=== PATIENT | female | born 1945 | race Caucasian/White ===

== ENCOUNTER 2017-07-22 16:33 | Inpatient (IN) | payer MEDICARE ==
[2017-07-22] MEDS ORDERED: IV VANCOMYCIN PER PHARMACY 1 EACH MISC MISCELLANE PRN (16:36)
[2017-07-22] MEDS: ACETAMINOPHEN TAB 500 MG TAB PO STA ×2 (16:46→17:09)
[2017-07-22 16:48] LABS: Basophils # (A) 0.1 k/uL (0-0.2); Basophils % (A) 1 %; CH 29.6; CHCM 32.1; Eosinophils # (A) 0.3 k/uL (0-0.7); Eosinophils % (A) 3 %; HCT 30.8 % (34.0-46.0); HDW 2.42; Luc # (Auto) 0.18; Luc % (Auto) 2; Lymphocytes # (A) 0.8 k/uL (1.0-4.8); Lymphocytes % (A) 7 %; MCH 30.1 pg (25.0-35.0); MCHC 32.4 g/dL (31.0-37.0); MCV 92.7 fL (80.0-100.0); Mean Platelet Volume 7.4; Monocytes # (A) 0.7 k/uL (0-1.0); Monocytes % (A) 6 %; Neutrophils # (A) 9.3 k/uL (1.3-7.7); Neutrophils % (A) 82 %; RBC 3.32 m/uL (3.80-5.40); RDW 13.2 % (11.5-15.5); WBC 11.3 k/uL (3.8-10.6); WBC (Perox) 11.33
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
[2017-07-22 17:00] LABS: Calcium 8.8 mg/dL (8.4-10.2); Potassium 6.1 mmol/L (3.5-5.1); Total Bilirubin 0.3 mg/dL (0.2-1.3); Total Protein 6.6 g/dL (6.3-8.2)
[2017-07-22 17:06] LABS: Prothrombin Time 9.9 sec (9.0-12.0)
[2017-07-22 17:08] LABS: Partial Thromboplastin Time 20.6 sec (22.0-30.0)
[2017-07-22 17:12] LABS: VBG PH 7.32 (7.31-7.41)
[2017-07-22] MEDS ORDERED: ACETAMINOPHEN IV (For NPO) 1,000 MG in EMPTY BAG 1 BAG IVPB ONE (17:15)
[2017-07-22 17:30] LABS: Appearance,Urine Clear (Clear); Bilirubin,Urine Negative (Negative); Glucose,Urine (UA) 3+ (Negative); Ketones,Urine Negative (Negative); Leukocyte Esterase,Urine Negative (Negative); Mucus,Urine Rare /hpf; Nitrite,Urine Negative (Negative); PH, Urine 6.5 (5.0-8.0); Particle Count 1277; Protein,Urine 3+ (Negative); Specific Gravity,Urine 1.008 (1.001-1.035); Squamous Epithelial Cell,Urine <1 /hpf (0-4); UA Billing (MACRO vs. MICRO) MICRO; Urobilinogen,Urine <2.0 mg/dL (<2.0); WBC,Urine 14 /hpf (0-5)
[2017-07-22] MEDS ORDERED: VANCOMYCIN 1,750 MG in SODIUM CHLORIDE 0.9% 250 ML IVPB ONE (17:30)
[2017-07-22] MEDS ORDERED: DOCUSATE 100 MG CAP PO PRN (17:44)
--- NOTE | 2017-07-22 18:10 | CT ---
EXAMINATION TYPE: CT brain wo con DATE OF EXAM: 07/22/2017 COMPARISON: NONE HISTORY: Altered mental status. CT DLP: 2009.[address] of the brain was performed. The ventricles, basal cisterns and sulci overlying the cerebral convexities demonstrate mild enlargem ent. There is no evidence for intracranial hemorrhage or sulcal effacement. There is decreased attenuation about the periventricular white matter and deep white matter of both c erebral hemispheres, compatible with chronic small vessel ischemia. Differential diagnosis does inclu de demyelination. No mass effects are seen.No midline shift. Osseous calvarium is intact. If symptoms persist consider MRI. IMPRESSION: 1. Age related atrophic and chronic small vessel ischemic change without acute intracranial process s een at this time.
--- NOTE | 2017-07-22 18:11 | XR ---
EXAMINATION TYPE: XR chest 2V DATE OF EXAM: 07/22/2017 COMPARISON: NONE HISTORY: Shortness of breath TECHNIQUE: Frontal and lateral views of the chest are obtained. FINDINGS: Scattered senescent parenchymal changes noted. Hyperinflation compatible with COPD. Heart size enlarged. Pulmonary venous congestion noted. Developing infiltrate right medial lung base not excluded. Correlate clinically. Mediastinal structures are stable and grossly unremarkable. No evidence for hilar prominence. Degenerative changes dorsal spine. IMPRESSION: 1. Heart size enlarged. Pulmonary venous congestion noted. Developing infiltrate right medial lung ba se not excluded. Correlate clinically.
[2017-07-22] MEDS: SODIUM CHLORIDE 0.9% 250 ML IV SCH ×2 (18:30→22:21)
[2017-07-22] MEDS: SODIUM CHLORIDE 0.9% 1,000 ML IV SCH (18:30)
[2017-07-22] MEDS ORDERED: FUROSEMIDE 10 MG/ML 4 ML VIAL IV STA (18:32)
[2017-07-22] MEDS ORDERED: NALOXONE 0.4 MG/ML 1 ML VIAL IV PRN (18:35)
[2017-07-22] MEDS ORDERED: CALCIUM GLUCONATE 1,000 MG in SODIUM CHLORIDE 0.9% 100 ML IVPB ONE (18:45)
[2017-07-22 20:59] LABS: Hemoglobin A1C 6.8 % (4.2-6.1)
[2017-07-22 21:03] LABS: Glucose,Whole Blood 210 mg/dL (75-99)
[2017-07-22] MEDS: GABAPENTIN 100 MG CAP PO SCH (22:21)
[2017-07-22] MEDS: amLODIPine 5 MG TAB PO SCH (22:22)
[2017-07-22] MEDS: CARVEDILOL 12.5 MG TAB PO SCH (22:22)
[2017-07-22] MEDS: ATORVASTATIN 40 MG TAB PO SCH (22:23)
[2017-07-22] MEDS: VALSARTAN 80 MG TAB PO SCH (22:23)
[2017-07-23] MEDS: CALCIUM ACETATE 667 MG CAP PO SCH ×4 (00:49→17:22)
[2017-07-23] MEDS: HEPARIN SODIUM,PORCINE 5,000 UNIT/ML 1 ML VIAL SQ SCH ×3 (00:49→20:51)
[2017-07-23] MEDS: INSULIN LISPRO (humaLOG) 300 UNIT/3 ML VIAL SQ SCH ×5 (00:49→20:57)
[2017-07-23] MEDS: SODIUM CHLORIDE 0.9% 250 ML IV SCH ×2 (00:50→00:58)
[2017-07-23 00:56] LABS: Glucose,Whole Blood 185 mg/dL (75-99)
[2017-07-23 05:57] LABS: Glucose,Whole Blood 232 mg/dL (75-99)
[2017-07-23 06:09] LABS: Basophils % (A) 0 %; CH 30.8; Eosinophils # (A) 0.1 k/uL (0-0.7); Eosinophils % (A) 1 %; HCT 25.1 % (34.0-46.0); HDW 2.45; Luc # (Auto) 0.13; Luc % (Auto) 1; Lymphocytes % (A) 10 %; MCH 29.7 pg (25.0-35.0); MCHC 31.7 g/dL (31.0-37.0); MCV 93.8 fL (80.0-100.0); Monocytes # (A) 0.5 k/uL (0-1.0); Monocytes % (A) 6 %; Neutrophils # (A) 7.4 k/uL (1.3-7.7); Neutrophils % (A) 81 %; RBC 2.67 m/uL (3.80-5.40); RDW 13.6 % (11.5-15.5); WBC 9.1 k/uL (3.8-10.6); WBC (Perox) 9.74
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
[2017-07-23 06:24] LABS: Anion Gap 9 mmol/L; Blood Urea Nitrogen 46 mg/dL (7-17); Calcium 8.2 mg/dL (8.4-10.2); Carbon Dioxide 23 mmol/L (22-30); Chloride 105 mmol/L (98-107); Glucose 238 mg/dL (74-99); Potassium 4.7 mmol/L (3.5-5.1); Sodium 137 mmol/L (137-145)
[2017-07-23 06:36] LABS: HGB 7.9 gm/dL (11.4-16.0)
[2017-07-23 06:54] LABS: Hepatitis B Surface Ag Index 0.05
[2017-07-23] MEDS: SODIUM CHLORIDE 0.9% 1,000 ML IV SCH (07:00)
[2017-07-23] MEDS: CARVEDILOL 12.5 MG TAB PO SCH ×2 (07:00→17:22)
[2017-07-23 07:26] LABS: Non-African American GFR(MDRD) 12 (>60 ml/min/1.73 sqM)
[2017-07-23] MEDS: ASPIRIN 325 MG TAB PO SCH ×2 (08:10→11:23)
[2017-07-23] MEDS ORDERED: ACETAMINOPHEN TAB 325 MG TAB PO PRN (10:10)
[2017-07-23] MEDS ORDERED: INSULIN DETEMIR 100 UNIT/ML 10 ML VIAL SQ ONE (11:13)
[2017-07-23] MEDS: CHOLECALCIFEROL 1,000 UNIT TAB PO SCH (11:23)
--- NOTE | 2017-07-23 11:25 | P.NPCON ---
History of Present Illness - Reason for Consult end stage renal disease - History of Present Illness Reason for consultation: End-stage renal disease History of present illness: Patient is a 71-year-old female seen in renal consultation for end-stage renal disease. Patient has a permacath at her was placed 2 weeks ago and also has a right upper extremity maturing AV fistula which is not ready to use at this time. She has not been started on hemodialysis up until now. She follows with Dr. Leonardo out of [facility]. Patient presented to the hospital with altered mental status and fever. She was noted to have a fever for 104F. Chest x-ray was suggestive of vascular congestion as well as right-sided pneumonia. One set of blood cultures is positive for gram-positive cocci. Patient denies any cough. She denies any chest pain or shortness of breath. She denies any hematuria or dysuria. Her potassium was 6.1H was also acidotic with a bicarb level of 16. She underwent first treatment of hemodialysis yesterday and is scheduled to undergo her second treatment of hemodialysis today. She's also been maintained on IV fluids at 75 mL an hour. Hemodynamically stable. Vital signs are stable. General: The patient appeared well nourished and normally developed. HEENT: Head exam is unremarkable. Neck is without jugular venous distension. LUNGS: Lungs are clear to auscultation and percussion. Breath sounds decreased. HEART: Rate and Rhythm are regular. First and second heart sounds normal. No murmurs, rubs or gallops. ABDOMEN: Abdominal exam reveals normal bowel sounds. Non-tender and non- distended. No evidence of peritonitis. EXTREMITITES: No clubbing, cyanosis, or edema. Erythema is noted around the catheter site. No drainage. 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 Past Anesthesia/Blood Transfusion Reactions: No Reported Reaction Past Psychological History: Anxiety Additional Psychological History / Comment(s): anxiety with procedures and sever claustrophobia Smoking Status: Never smoker Past Alcohol Use History: None Reported - Past Family History Father Family Medical History: Coronary Artery Disease (CAD), Dementia, Diabetes Mellitus, Hyperlipidemia, Hypertension Additional Family Medical History / Comment(s): CABG Mother Family Medical History: Congestive Heart Failure (CHF), Deep Vein Thrombosis ( DVT) Additional Family Medical History / Comment(s): breast CA Medications and Allergies Home Medications Medication Instructions Recorded Confirmed Type Aspirin 325 mg PO DAILY 07/22/17 07/22/17 History Calcium Acetate [Phoslo] 667 mg PO TID 07/22/17 07/22/17 History Carvedilol [Coreg] 12.5 mg PO BID 07/22/17 07/22/17 History Cholecalciferol [Vitamin D3] 5,000 unit PO DAILY 07/22/17 07/22/17 History Docusate [Colace] 100 mg PO DAILY PRN 07/22/17 07/22/17 History Fish Oil/Dha/Epa [Fish Oil 1,200 1 cap PO BID 07/22/17 07/22/17 History mg Fish Oil] Gabapentin [Neurontin] 100 mg PO HS 07/22/17 07/22/17 History Insulin Detemir [Levemir] 65 unit SQ HS 07/22/17 07/23/17 History Rosuvastatin [Crestor] 20 mg PO HS 07/22/17 07/22/17 History Valsartan [Diovan] 80 mg PO BID 07/22/17 07/22/17 History amLODIPine [Norvasc] 5 mg PO BID 07/22/17 07/22/17 History Insulin Lispro [humaLOG Kwikpen] 14 units SQ AC-BID@0800,1200 07/23/17 07/23/17 History Insulin Lispro [humaLOG Kwikpen] 20 units SQ AC-SUPPER 07/23/17 07/23/17 History Insulin Lispro [humaLOG Kwikpen] See Protocol SQ AC-TID 07/23/17 07/23/17 History Allergies Allergy/AdvReac Type Severity Reaction Status Date / Time No Known Allergies Allergy Verified 07/22/17 16:42 Physical Exam Vitals: Vital Signs Temp Pulse Pulse Resp BP BP Pulse Ox 07/23/17 11:07 98.6 F 66 16 147/71 96 07/23/17 08:00 101.6 F H 73 18 133/57 07/23/17 04:00 100.4 F H 74 18 153/66 95 07/23/17 00:20 103 H 18 157/76 95 07/22/17 20:23 97.4 F L 75 18 167/74 95 07/22/17 19:45 99.3 F 07/22/17 19:36 72 19 167/70 98 07/22/17 19:11 73 18 182/76 97 07/22/17 18:49 100.1 F H 76 18 198/79 97 07/22/17 18:00 101.7 F H 79 18 185/77 98 07/22/17 16:35 102.5 F H 103 H 20 153/110 95 Intake and Output 07/22/17 07/23/17 07/23/17 22:59 06:59 14:59 Intake Total 120 Balance 120 Intake: Oral 120 Other: Voiding Method Toilet Toilet # Voids 2 Weight 101.1 kg 101.1 kg 101.1 kg Patient Weight 07/24/17 06:59 Weight 101.1 kg Results - Lab Results Most recent lab results Calcium 8.2 mg/dL (8.4-10.2) L 07/23/17 05:37 07/23/17 05:37 07/23/17 05:37 Assessment and Plan Plan: Assessment: #1. End-stage renal disease started on hemodialysis yesterday. She tolerated the treatment well. Etiology is diabetic kidney disease. She has a permacath in place and also a maturing right upper extremity AV fistula. #2. Sepsis secondary to gram-positive bacteremia. There is concern for pneumonia on chest x-ray. Line sepsis also a concerning factor. #3. Insulin-dependent diabetes mellitus. #4. Hyperkalemia secondary to chronic kidney disease. #5. Volume overload. #6. Anemia of chronic kidney disease. Plan: Hemodialysis today with goal 3 L or defecation. Hep-Lock IV fluids. Maintain PhosLo with meals. Infectious disease recommendations pending. If line sepsis is the source of bacteremia, then may discontinue permacath after dialysis today. A new one will have to be reinserted once bacteremia clears. Continue with IV antibiotics. Start Aranesp. Check phosphorus level. Add IV Lasix. Thank you for the consultation. I will continue to follow the patient with you during his hospital stay.
[2017-07-23 11:47] LABS: Glucose,Whole Blood 243 mg/dL (75-99)
[2017-07-23 11:50] LABS: Hepatitis B Surface Antibody Non-Reactive (Non-Reactive)
[2017-07-23] MEDS: VALSARTAN 80 MG TAB PO SCH ×2 (15:32→20:51)
[2017-07-23] MEDS: amLODIPine 5 MG TAB PO SCH ×2 (15:32→20:50)
[2017-07-23] MEDS: FUROSEMIDE 10 MG/ML 10 ML VIAL IV SCH ×2 (15:33→20:50)
[2017-07-23] MEDS ORDERED: VANCOMYCIN 1,500 MG in SODIUM CHLORIDE 0.9% 250 ML IVPB ONE (17:00)
[2017-07-23 17:05] LABS: Glucose,Whole Blood 172 mg/dL (75-99)
--- NOTE | 2017-07-23 17:13 | P.PN ---
Subjective Date of service 07/23/2017. Progress note being dictated for Dr. Nguyen. Interval history: This a 71-year-old female admitted with altered mental status , acute UTI, renal failure, hyperkalemia, acidosis, sepsis and multiple other medical issues. Received first hemodialysis treatment last night via Permacath and currently receiving second treatment. Significant improvement in sensorium , electrolytes/bicarb.Maintained on gentle IV fluid hydration. T-max 102.5. Blood cultures reporting gram-positive cocci in clusters, urine culture in progress. Normal WBC. Past medical history reviewed. Review of systems: CONSTITUTIONAL: fatigue, no dizziness, no syncope HEENT: No recent visual problems or hearing problems. Denied any sore throat. CARDIOVASCULAR: No chest pain, orthopnea, PND, no palpitations, no syncope. PULMONARY: No shortness of breath, no cough, no hemoptysis. GASTROINTESTINAL: No diarrhea, no nausea, no vomiting, no abdominal pain. Normoactive bowel sounds. No melena. NEUROLOGICAL: No headaches, no weakness, no numbness. HEMATOLOGICAL: Denies any bleeding or petechiae. GENITOURINARY: Denies any burning micturition, frequency, or urgency. MUSCULOSKELETAL/RHEUMATOLOGICAL: Denies any joint pain, swelling, or any muscle pain. ENDOCRINE: Denies any polyuria or polydipsia. PSYCHIATRIC: No anxiety, no depression The rest of the 14 point review of systems is negative Active Medications Acetaminophen (Tylenol Tab) 650 mg PO Q6HR PRN PRN Reason: Fever and/ or Pain Amlodipine Besylate (Norvasc) 5 mg PO BID [facility] Last Admin: 07/23/17 15:32 Dose: Not Given Aspirin (Aspirin) 325 mg PO DAILY [facility] Last Admin: 07/23/17 11:23 Dose: 325 mg Atorvastatin Calcium (Lipitor) 40 mg PO HS [facility] Last Admin: 07/22/17 22:23 Dose: 40 mg Calcium Acetate (Phoslo) 667 mg PO TID-W/MEALS [facility] Last Admin: 07/23/17 12:44 Dose: 667 mg Carvedilol (Coreg) 12.5 mg PO BID-W/MEALS [facility] Last Admin: 07/23/17 07:00 Dose: 12.5 mg Cholecalciferol (Vitamin D3) 5,000 unit PO 1200 [facility] Last Admin: 07/23/17 11:23 Dose: 5,000 unit Darbepoetin Marquis (Aranesp) 40 mcg SQ Q7D [facility] Docusate Sodium (Colace) 100 mg PO DAILY PRN PRN Reason: Constipation Furosemide (Lasix) 80 mg IV Q12HR [facility] Last Admin: 07/23/17 15:33 Dose: 80 mg Gabapentin (Neurontin) 100 mg PO HS [facility] Last Admin: 07/22/17 22:21 Dose: 100 mg Heparin Sodium (Porcine) (Heparin) 5,000 unit SQ Q12HR [facility] Last Admin: 07/23/17 08:11 Dose: 5,000 unit Vancomycin HCl 1,500 mg/ (Sodium Chloride) 250 mls @ 125 mls/hr IVPB ONCE ONE Stop: 07/23/17 18:59 Ceftriaxone Sodium 1,000 mg/ (Sodium Chloride) 50 mls @ 100 mls/hr IVPB Q24H [facility] Insulin Detemir (Levemir) 65 unit SQ HS [facility] Insulin Human Lispro (Humalog) 0 unit SQ ACHS [facility] PRN Reason: Protocol Last Admin: 07/23/17 12:43 Dose: 3 unit Miscellaneous Information (Pharmacy To Dose Iv Vancomycin) 1 each MISCELLANE DIRECTED PRN PRN Reason: Per Protocol Naloxone HCl (Narcan) 0.2 mg IV Q2M PRN PRN Reason: Opioid Reversal Valsartan (Diovan) 80 mg PO BID [facility] Last Admin: 07/23/17 15:32 Dose: Not Given Objective - Vital Signs Vital signs: Vital Signs Temp 98.6 F 07/23/17 11:07 Pulse 69 07/23/17 15:31 Resp 18 07/23/17 15:31 BP 107/48 07/23/17 15:31 Pulse Ox 97 07/23/17 15:31 Intake & Output 07/22/17 07/23/17 07/23/17 18:59 06:59 18:59 Intake Total 120 Balance 120 Weight 99.79 kg 101.1 kg 101.1 kg Intake: Oral 120 Other: Voiding Method Toilet # Voids 2 - Exam PHYSICAL EXAM: VITAL SIGNS: As above GENERAL: Sitting up in bed, receiving hemodialysis, no acute distress HEENT: Conjunctivae normal. eyes normal. Oral mucosa moist. NECK: No JVD. No thyroid enlargement. No LNs CARDIOVASCULAR: S1, S2 muffled. No murmur RESPIRATION: Bilateral bases diminished, scattered rhonchi , no crackles. No bronchial breathing. ABDOMEN: Soft, nontender . No guarding. no masses palpable. Bowel sounds heard. LEGS: No edema. no swelling PSYCHIATRY: Alert and oriented -3, mood and affect normal. NERVOUS SYSTEM: Cranial N 2-12 grossly normal. Moves all 4 limbs. Diffuse weakness No focal deficits. No sensory deficit. No signs of cerebellar dysfucntion. Skin: no ulcer no rash, reddened around permacath. Joints: No active swelling. No inflammation. - Labs CBC & Chem 7: 07/23/17 05:37 07/23/17 05:37 Labs: Abnormal Lab Results - Last 24 Hours (Table) 07/22/17 07/22/17 07/22/17 Range/Units 16:39 16:39 16:39 RBC (3.80-5.40) m/uL Hgb (11.4-16.0) gm/dL Hct (34.0-46.0) % APTT 20.6 L (22.0-30.0) sec VBG HCO3 (24-28) mmol/L Sodium 132 L (137-145) mmol/L Potassium 6.1 H (3.5-5.1) mmol/L Carbon Dioxide 16 L (22-30) mmol/L BUN 78 H (7-17) mg/dL Creatinine 5.70 H* (0.52-1.04) mg/dL Glucose 264 H (74-99) mg/dL POC Glucose (mg/dL) (75-99) mg/dL Hemoglobin A1c 6.8 H (4.2-6.1) % Calcium (8.4-10.2) mg/dL Phosphorus (2.5-4.5) mg/dL Urine Protein (Negative) Urine Glucose (UA) (Negative) Urine Blood (Negative) Urine WBC (0-5) /hpf Urine Mucus (None) /hpf 07/22/17 07/22/17 07/22/17 Range/Units 17:02 17:17 21:00 RBC (3.80-5.40) m/uL Hgb (11.4-16.0) gm/dL Hct (34.0-46.0) % APTT (22.0-30.0) sec VBG HCO3 20 L (24-28) mmol/L Sodium (137-145) mmol/L Potassium (3.5-5.1) mmol/L Carbon Dioxide (22-30) mmol/L BUN (7-17) mg/dL Creatinine (0.52-1.04) mg/dL Glucose (74-99) mg/dL POC Glucose (mg/dL) 210 H (75-99) mg/dL Hemoglobin A1c (4.2-6.1) % Calcium (8.4-10.2) mg/dL Phosphorus (2.5-4.5) mg/dL Urine Protein 3+ H (Negative) Urine Glucose (UA) 3+ H (Negative) Urine Blood Trace H (Negative) Urine WBC 14 H (0-5) /hpf Urine Mucus Rare H (None) /hpf 07/23/17 07/23/17 07/23/17 Range/Units 00:43 05:37 05:37 RBC 2.67 L (3.80-5.40) m/uL Hgb 7.9 L D (11.4-16.0) gm/dL Hct 25.1 L (34.0-46.0) % APTT (22.0-30.0) sec VBG HCO3 (24-28) mmol/L Sodium (137-145) mmol/L Potassium (3.5-5.1) mmol/L Carbon Dioxide (22-30) mmol/L BUN 46 H (7-17) mg/dL Creatinine 3.81 H (0.52-1.04) mg/dL Glucose 238 H (74-99) mg/dL POC Glucose (mg/dL) 185 H (75-99) mg/dL Hemoglobin A1c (4.2-6.1) % Calcium 8.2 L (8.4-10.2) mg/dL Phosphorus (2.5-4.5) mg/dL Urine Protein (Negative) Urine Glucose (UA) (Negative) Urine Blood (Negative) Urine WBC (0-5) /hpf Urine Mucus (None) /hpf 07/23/17 07/23/17 07/23/17 Range/Units 05:37 05:55 11:41 RBC (3.80-5.40) m/uL Hgb (11.4-16.0) gm/dL Hct (34.0-46.0) % APTT (22.0-30.0) sec VBG HCO3 (24-28) mmol/L Sodium (137-145) mmol/L Potassium (3.5-5.1) mmol/L Carbon Dioxide (22-30) mmol/L BUN (7-17) mg/dL Creatinine (0.52-1.04) mg/dL Glucose (74-99) mg/dL POC Glucose (mg/dL) 232 H 243 H (75-99) mg/dL Hemoglobin A1c (4.2-6.1) % Calcium (8.4-10.2) mg/dL Phosphorus 4.8 H (2.5-4.5) mg/dL Urine Protein (Negative) Urine Glucose (UA) (Negative) Urine Blood (Negative) Urine WBC (0-5) /hpf Urine Mucus (None) /hpf Microbiology - Last 24 Hours (Table) 07/22/17 16:39 Blood Culture Gram Stain - Preliminary Blood 07/22/17 16:39 Blood Culture - Final Blood 07/22/17 17:17 Urine Culture - Preliminary Urine,Voided Assessment and Plan Plan: 1. [ Change in mental status, possible acute UTI with sepsis with metabolic encephalopathy secondary to sepsis, possibly related to permacath . 2. [ Acute on chronic renal failure, end stage, with initiation of hemodialysis 3. [Anemia, normocytic, of chronic disease]. 4. [ Diabetes mellitus type 2]. Plan: Continue on current medication regime ,monitoring and symptomatic treatment. Continue following cultures closely. Maintain antibiotics. Infectious disease consult in place with recommendations pending. Will closely with nephrology. Further recommendations to follow. The impression and plan of care has been dictated as directed. : I performed a H&P examination of this patient and discussed the same with the dictator. I agree with the dictator's note. Any additional findings/opinions/ etc. will be noted.
[2017-07-23] MEDS: DARBEPOETIN ALFA 40 MCG/0.4 ML SYRINGE SQ SCH (18:23)
[2017-07-23] MEDS: ATORVASTATIN 40 MG TAB PO SCH (20:50)
[2017-07-23] MEDS: GABAPENTIN 100 MG CAP PO SCH (20:51)
[2017-07-23 20:58] LABS: Glucose,Whole Blood 285 mg/dL (75-99)
[2017-07-23] MEDS ORDERED: INSULIN DETEMIR 100 UNIT/ML 10 ML VIAL SQ SCH (21:00)
[2017-07-24 06:08] LABS: Glucose,Whole Blood 128 mg/dL (75-99)
[2017-07-24] MEDS: INSULIN LISPRO (humaLOG) 300 UNIT/3 ML VIAL SQ SCH ×4 (06:10→21:21)
[2017-07-24 06:37] LABS: Basophils # (A) 0.1 k/uL (0-0.2); Basophils % (A) 1 %; CH 29.3; CHCM 31.8; Eosinophils # (A) 0.2 k/uL (0-0.7); Eosinophils % (A) 3 %; HCT 25.6 % (34.0-46.0); HGB 8.3 gm/dL (11.4-16.0); Luc # (Auto) 0.17; Luc % (Auto) 2; Lymphocytes # (A) 1.2 k/uL (1.0-4.8); Lymphocytes % (A) 15 %; MCHC 32.4 g/dL (31.0-37.0); MCV 92.8 fL (80.0-100.0); Mean Platelet Volume 7.7; Monocytes # (A) 0.5 k/uL (0-1.0); Monocytes % (A) 6 %; Neutrophils # (A) 5.9 k/uL (1.3-7.7); Neutrophils % (A) 74 %; RBC 2.76 m/uL (3.80-5.40); RDW 13.4 % (11.5-15.5); WBC (Perox) 8.66
[2017-07-24 06:44] LABS: Calcium 8.4 mg/dL (8.4-10.2); Potassium 4.5 mmol/L (3.5-5.1)
[2017-07-24] MEDS: CARVEDILOL 12.5 MG TAB PO SCH ×2 (06:45→18:23)
[2017-07-24] MEDS: CALCIUM ACETATE 667 MG CAP PO SCH ×3 (06:45→18:23)
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
[2017-07-24] MEDS: ASPIRIN 325 MG TAB PO SCH (09:37)
[2017-07-24] MEDS: HEPARIN SODIUM,PORCINE 5,000 UNIT/ML 1 ML VIAL SQ SCH ×2 (09:37→21:21)
[2017-07-24 11:34] LABS: Glucose,Whole Blood 236 mg/dL (75-99)
[2017-07-24] MEDS: VALSARTAN 80 MG TAB PO SCH ×2 (14:54→21:20)
[2017-07-24] MEDS: amLODIPine 5 MG TAB PO SCH ×2 (14:54→21:21)
[2017-07-24] MEDS: CHOLECALCIFEROL 1,000 UNIT TAB PO SCH (14:54)
[2017-07-24] MEDS: FUROSEMIDE 10 MG/ML 10 ML VIAL IV SCH ×2 (14:54→21:29)
[2017-07-24 16:46] LABS: Glucose,Whole Blood 183 mg/dL (75-99)
--- NOTE | 2017-07-24 18:05 | P.PN ---
Subjective Date of service Progress note being dictated for Dr. Nguyen. 07/23/2017.Interval history: This a 71-year-old female admitted with altered mental status, acute UTI, renal failure, hyperkalemia, acidosis, sepsis and multiple other medical issues. Received first hemodialysis treatment last night via Permacath and currently receiving second treatment. Significant improvement in sensorium, electrolytes/bicarb.Maintained on gentle IV fluid hydration. T-max 102.5. Blood cultures reporting gram-positive cocci in clusters, urine culture in progress. Normal WBC. 07/24/2017. Maintained on Rocephin and vancomycin as per infectious disease. T -max 99.1, WBC 8. Presumptive MRSA in preliminary blood culture. Evaluated by infectious disease. Hemodialysis today pending, with permacath to be removed postdialysis related to suspected line sepsis. Past medical history reviewed. Review of systems: CONSTITUTIONAL: fatigue, no dizziness, no syncope HEENT: No recent visual problems or hearing problems. Denied any sore throat. CARDIOVASCULAR: No chest pain, orthopnea, PND, no palpitations, no syncope. PULMONARY: No shortness of breath, no cough, no hemoptysis. GASTROINTESTINAL: No diarrhea, no nausea, no vomiting, no abdominal pain. Normoactive bowel sounds. No melena. NEUROLOGICAL: No headaches, no weakness, no numbness. HEMATOLOGICAL: Denies any bleeding or petechiae. GENITOURINARY: Denies any burning micturition, frequency, or urgency. MUSCULOSKELETAL/RHEUMATOLOGICAL: Denies any joint pain, swelling, or any muscle pain. ENDOCRINE: Denies any polyuria or polydipsia. PSYCHIATRIC: No anxiety, no depression The rest of the 14 point review of systems is negative Active Medications Generic Name Dose Route Start Last Admin Trade Name Freq PRN Reason Stop Dose Admin Acetaminophen 650 mg 07/23/17 10:10 Tylenol Tab PO Q6HR PRN Fever and/ or Pain Amlodipine Besylate 5 mg 07/22/17 21:00 07/24/17 14:54 Norvasc PO Not Given BID [facility] Aspirin 325 mg 07/23/17 09:00 07/24/17 09:37 Aspirin PO 325 mg DAILY [facility] Administration Atorvastatin Calcium 40 mg 07/22/17 21:00 07/23/17 20:50 Lipitor PO 40 mg HS [facility] Administration Calcium Acetate 667 mg 07/22/17 19:30 07/24/17 14:54 Phoslo PO Not Given TID-W/MEALS [facility] Carvedilol 12.5 mg 07/22/17 19:30 07/24/17 06:45 Coreg PO 12.5 mg BID-W/MEALS [facility] Administration Cholecalciferol 5,000 unit 07/23/17 12:00 07/24/17 14:54 Vitamin D3 PO Not Given 1200 [facility] Darbepoetin Marquis 40 mcg 07/23/17 11:30 07/23/17 18:23 Aranesp SQ 40 mcg Q7D [facility] Administration Docusate Sodium 100 mg 07/22/17 17:44 Colace PO DAILY PRN Constipation Furosemide 80 mg 07/23/17 12:00 07/24/17 14:54 Lasix IV Not Given Q12HR [facility] Gabapentin 100 mg 07/22/17 21:00 07/23/17 20:51 Neurontin PO 100 mg HS [facility] Administration Heparin Sodium (Porcine) 5,000 unit 07/22/17 21:00 07/24/17 09:37 Heparin SQ 5,000 unit Q12HR [facility] Administration Ceftriaxone Sodium 1,000 mg/ 50 mls @ 100 mls/hr 07/23/17 16:00 07/23/17 17: 21 Sodium Chloride IVPB 100 mls/hr Q24H [facility] Administration Insulin Detemir 65 unit 07/24/17 21:00 Levemir SQ HS [facility] Insulin Human Lispro 0 unit 07/22/17 21:00 07/24/17 12:21 Humalog SQ 3 unit ACHS [facility] Administration Protocol Miscellaneous Information 1 each 07/22/17 16:36 Pharmacy To Dose Iv Vancomycin MISCELLANE DIRECTED PRN Per Protocol Naloxone HCl 0.2 mg 07/22/17 18:35 Narcan IV Q2M PRN Opioid Reversal Valsartan 80 mg 07/22/17 21:00 07/24/17 14:54 Diovan PO Not Given BID [facility] Objective - Vital Signs Vital signs: Vital Signs Temp 97.6 F 07/24/17 11:57 Pulse 63 07/24/17 15:43 Resp 16 07/24/17 15:43 BP 183/92 07/24/17 15:43 Pulse Ox 99 07/24/17 15:43 Intake & Output 07/23/17 07/24/17 07/24/17 18:59 06:59 18:59 Intake Total 220 10 480 Output Total 200 Balance 220 10 280 Weight 101.1 kg 98.9 kg Intake: IV 10 0.9 10 Oral 220 480 Output: Urine 200 Other: Voiding Method Toilet # Voids 1 - Exam PHYSICAL EXAM: VITAL SIGNS: As above GENERAL: Sitting up in chair, no acute distress HEENT: Conjunctivae normal. eyes normal. Oral mucosa moist. NECK: No JVD. No thyroid enlargement. No LNs CARDIOVASCULAR: S1, S2 muffled. No murmur RESPIRATION: Bilateral bases diminished, scattered rhonchi , no crackles. No bronchial breathing. ABDOMEN: Soft, nontender . No guarding. no masses palpable. Bowel sounds present. LEGS: Mild edema. PSYCHIATRY: Alert and oriented -3, mood and affect normal. NERVOUS SYSTEM: Cranial N 2-12 grossly normal. Moves all 4 limbs. No focal deficits. No sensory deficit. Skin: no ulcer no rash, reddened around permacath insertion site. Microbiology 07/23/17 14:30 Blood Blood Culture Gram Stain - Preliminary 07/23/17 14:30 Blood Blood Culture - Final 07/22/17 16:39 Blood Blood Culture Gram Stain - Preliminary 07/22/17 16:39 Blood Blood Culture - Preliminary Presumptive MRSA 07/22/17 17:17 Urine,Voided Urine Culture - Final 07/22/17 16:39 Blood Blood Culture - Final - Labs CBC & Chem 7: 07/24/17 06:11 07/24/17 06:07 Labs: Abnormal Lab Results - Last 24 Hours (Table) 07/23/17 07/24/17 07/24/17 Range/Units 20:56 06:05 06:07 RBC (3.80-5.40) m/uL Hgb (11.4-16.0) gm/dL Hct (34.0-46.0) % Sodium 136 L (137-145) mmol/L Carbon Dioxide 21 L (22-30) mmol/L BUN 41 H (7-17) mg/dL Creatinine 4.14 H (0.52-1.04) mg/dL Glucose 120 H (74-99) mg/dL POC Glucose (mg/dL) 285 H 128 H (75-99) mg/dL 07/24/17 07/24/17 07/24/17 Range/Units 06:11 11:27 16:34 RBC 2.76 L (3.80-5.40) m/uL Hgb 8.3 L (11.4-16.0) gm/dL Hct 25.6 L (34.0-46.0) % Sodium (137-145) mmol/L Carbon Dioxide (22-30) mmol/L BUN (7-17) mg/dL Creatinine (0.52-1.04) mg/dL Glucose (74-99) mg/dL POC Glucose (mg/dL) 236 H 183 H (75-99) mg/dL Microbiology - Last 24 Hours (Table) 07/23/17 14:30 Blood Culture Gram Stain - Preliminary Blood 07/23/17 14:30 Blood Culture - Final Blood 07/22/17 16:39 Blood Culture Gram Stain - Preliminary Blood Blood Culture - Preliminary Presumptive MRSA 07/22/17 17:17 Urine Culture - Final Urine,Voided Assessment and Plan Plan: 1. [ Change in mental status, possible acute UTI with sepsis-presumptive MRSA with metabolic encephalopathy secondary to sepsis, possibly related to permacath. 2. [ Acute on chronic renal failure, end stage, with initiation of hemodialysis 3. [Anemia, normocytic, of chronic disease]. 4. [ Diabetes mellitus type 2]. Plan: Continue on current medication regime ,monitoring and symptomatic treatment. Antibiotics as per infectious disease. Continue following cultures closely. As mentioned above, per infectious disease permacath to be removed/ replaced after dialysis session today, vascular surgery consulted. follow closely with nephrology. Further recommendations to follow. The impression and plan of care has been dictated as directed. : I performed a H&P examination of this patient and discussed the same with the dictator. I agree with the dictator's note. Any additional findings/opinions/ etc. will be noted.
[2017-07-24 20:37] LABS: Glucose,Whole Blood 289 mg/dL (75-99)
[2017-07-24] MEDS: ATORVASTATIN 40 MG TAB PO SCH (21:20)
[2017-07-24] MEDS: GABAPENTIN 100 MG CAP PO SCH (21:21)
[2017-07-24] MEDS: INSULIN DETEMIR 100 UNIT/ML 10 ML VIAL SQ SCH (21:30)
[2017-07-25 05:52] LABS: Glucose,Whole Blood 80 mg/dL (75-99)
[2017-07-25] MEDS: INSULIN LISPRO (humaLOG) 300 UNIT/3 ML VIAL SQ SCH ×4 (06:05→20:41)
[2017-07-25] MEDS: CALCIUM ACETATE 667 MG CAP PO SCH ×3 (06:13→16:37)
[2017-07-25] MEDS: CARVEDILOL 12.5 MG TAB PO SCH ×2 (06:13→16:37)
[2017-07-25 06:51] LABS: Calcium 8.6 mg/dL (8.4-10.2)
[2017-07-25 07:00] LABS: Potassium 4.6 mmol/L (3.5-5.1)
[2017-07-25 07:13] LABS: Basophils % (A) 1 %; CH 29.6; Eosinophils # (A) 0.4 k/uL (0-0.7); Eosinophils % (A) 5 %; HCT 27.8 % (34.0-46.0); HGB 9.2 gm/dL (11.4-16.0); Luc # (Auto) 0.34; Luc % (Auto) 4; Lymphocytes # (A) 1.8 k/uL (1.0-4.8); Lymphocytes % (A) 21 %; MCH 29.8 pg (25.0-35.0); MCV 90.4 fL (80.0-100.0); Mean Platelet Volume 7.8; Monocytes # (A) 0.7 k/uL (0-1.0); Monocytes % (A) 9 %; Neutrophils # (A) 5.1 k/uL (1.3-7.7); Neutrophils % (A) 61 %; RBC 3.08 m/uL (3.80-5.40); RDW 13.2 % (11.5-15.5); WBC 8.4 k/uL (3.8-10.6); WBC (Perox) 8.59
[2017-07-25] MEDS: VALSARTAN 80 MG TAB PO SCH ×2 (08:22→20:40)
[2017-07-25] MEDS: amLODIPine 5 MG TAB PO SCH ×2 (08:22→20:40)
[2017-07-25] MEDS: HEPARIN SODIUM,PORCINE 5,000 UNIT/ML 1 ML VIAL SQ SCH ×2 (08:22→20:41)
[2017-07-25] MEDS: ASPIRIN 325 MG TAB PO SCH (08:22)
[2017-07-25] MEDS: FUROSEMIDE 10 MG/ML 10 ML VIAL IV SCH ×2 (08:22→20:40)
--- NOTE | 2017-07-25 09:21 | P.GSCN ---
History of Present Illness History of present illness: 71-year-old female, patient has history of chronic renal failure, history of diabetes, history of hypertension, patient came with history of fever and confusion and found to have a MRSA and I was consulted for removal of the dialysis catheter which was placed at [facility] in general about 2 weeks ago. Patient also has a Sydnee fistula at the left wrist which is not ready to be used Neck examination patient has a dialysis catheter right jugular approach no lift neuropathic of the neck Chest clear first and second sound normal Abdomen soft nontender vascular examination brachial radial pulses are present patient has Sydnee fistula left wrist thrill is present Plan is removal of dialysis catheter 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 Past Anesthesia/Blood Transfusion Reactions: No Reported Reaction Past Psychological History: Anxiety Additional Psychological History / Comment(s): anxiety with procedures and sever claustrophobia Smoking Status: Never smoker Past Alcohol Use History: None Reported - Past Family History Father Family Medical History: Coronary Artery Disease (CAD), Dementia, Diabetes Mellitus, Hyperlipidemia, Hypertension Additional Family Medical History / Comment(s): CABG Mother Family Medical History: Congestive Heart Failure (CHF), Deep Vein Thrombosis ( DVT) Additional Family Medical History / Comment(s): breast CA Medications and Allergies Home Medications Medication Instructions Recorded Confirmed Type Aspirin 325 mg PO DAILY 07/22/17 07/22/17 History Calcium Acetate [Phoslo] 667 mg PO TID 07/22/17 07/22/17 History Carvedilol [Coreg] 12.5 mg PO BID 07/22/17 07/22/17 History Cholecalciferol [Vitamin D3] 5,000 unit PO DAILY 07/22/17 07/22/17 History Docusate [Colace] 100 mg PO DAILY PRN 07/22/17 07/22/17 History Fish Oil/Dha/Epa [Fish Oil 1,200 1 cap PO BID 07/22/17 07/22/17 History mg Fish Oil] Gabapentin [Neurontin] 100 mg PO HS 07/22/17 07/22/17 History Insulin Detemir [Levemir] 65 unit SQ HS 07/22/17 07/23/17 History Rosuvastatin [Crestor] 20 mg PO HS 07/22/17 07/22/17 History amLODIPine [Norvasc] 5 mg PO BID 07/22/17 07/22/17 History Insulin Lispro [humaLOG Kwikpen] 14 units SQ AC-BID@0800,1200 07/23/17 07/23/17 History Insulin Lispro [humaLOG Kwikpen] 20 units SQ AC-SUPPER 07/23/17 07/23/17 History Insulin Lispro [humaLOG Kwikpen] See Protocol SQ AC-TID 07/23/17 07/23/17 History Allergies Allergy/AdvReac Type Severity Reaction Status Date / Time No Known Allergies Allergy Verified 07/22/17 16:42 Surgical - Exam Vital Signs Temp Pulse Resp BP Pulse Ox 102.5 F H 103 H 20 153/110 95 07/22/17 16:35 07/22/17 16:35 07/22/17 16:35 07/22/17 16:35 07/22/17 16:35 Results - Labs 07/25/17 06:58 07/25/17 05:53 Abnormal Lab Results - Last 24 Hours (Table) 07/24/17 07/24/17 07/24/17 Range/Units 11:27 16:34 20:35 RBC (3.80-5.40) m/uL Hgb (11.4-16.0) gm/dL Hct (34.0-46.0) % Sodium (137-145) mmol/L Carbon Dioxide (22-30) mmol/L BUN (7-17) mg/dL Creatinine (0.52-1.04) mg/dL POC Glucose (mg/dL) 236 H 183 H 289 H (75-99) mg/dL 07/25/17 07/25/17 Range/Units 05:53 06:58 RBC 3.08 L (3.80-5.40) m/uL Hgb 9.2 L (11.4-16.0) gm/dL Hct 27.8 L (34.0-46.0) % Sodium 134 L (137-145) mmol/L Carbon Dioxide 21 L (22-30) mmol/L BUN 31 H (7-17) mg/dL Creatinine 3.50 H (0.52-1.04) mg/dL POC Glucose (mg/dL) (75-99) mg/dL Microbiology - Last 24 Hours (Table) 07/22/17 16:39 Blood Culture Gram Stain - Final Blood Blood Culture - Final Methicillin resist S. aureus 07/23/17 14:30 Blood Culture Gram Stain - Preliminary Blood Blood Culture - Preliminary Presumptive MRSA 07/23/17 14:30 Blood Culture - Final Blood Diabetes panel 07/25/17 Range/Units 05:53 Sodium 134 L (137-145) mmol/L Potassium 4.6 (3.5-5.1) mmol/L Chloride 102 (98-107) mmol/L Carbon Dioxide 21 L (22-30) mmol/L BUN 31 H (7-17) mg/dL Creatinine 3.50 H (0.52-1.04) mg/dL Glucose 80 (74-99) mg/dL Calcium 8.6 (8.4-10.2) mg/dL Calcium panel 07/25/17 Range/Units 05:53 Calcium 8.6 (8.4-10.2) mg/dL Pituitary panel 07/25/17 Range/Units 05:53 Sodium 134 L (137-145) mmol/L Potassium 4.6 (3.5-5.1) mmol/L Chloride 102 (98-107) mmol/L Carbon Dioxide 21 L (22-30) mmol/L BUN 31 H (7-17) mg/dL Creatinine 3.50 H (0.52-1.04) mg/dL Glucose 80 (74-99) mg/dL Calcium 8.6 (8.4-10.2) mg/dL Adrenal panel 07/25/17 Range/Units 05:53 Sodium 134 L (137-145) mmol/L Potassium 4.6 (3.5-5.1) mmol/L Chloride 102 (98-107) mmol/L Carbon Dioxide 21 L (22-30) mmol/L BUN 31 H (7-17) mg/dL Creatinine 3.50 H (0.52-1.04) mg/dL Glucose 80 (74-99) mg/dL Calcium 8.6 (8.4-10.2) mg/dL
--- NOTE | 2017-07-25 09:22 | P.PCN ---
Preoperative Diagnosis: Postoperative Diagnosis: Procedure(s) Performed: Implants: Indications for Procedure: Operative Findings: Description of Procedure: Procedure note removal of dialysis catheter this patient has right IJ catheter placed in the past patient has fever and blood culture came back as a MRSA patient was seen in her room Keyshawn of the neck was prepped and draped applied usual manner 1% lidocaine for infected stitches were removed from the exit site of the catheter went circumferentially around the cuff catheter was removed tip of the catheter was sent for culture and sensitivity pressure dressing applied patient tolerated the procedure well
--- NOTE | 2017-07-25 09:41 | P.PN ---
Subjective Patient is seen for follow-up for end-stage renal disease. She was admitted to the hospital with fever and shortness of breath and fluid overload. We have been able to get at least 2-2.5 L with the last 3 hemodialysis treatments. Patient tolerated her treatment well however she did have cramps last night. Her blood cultures grew presumptive MRSA second set of blood cultures was also positive for gram-positive cocci and therefore of upon further discussion with infectious disease it was decided to remove her permacath which was removed yesterday. Patient had her dialysis yesterday and we do not plan for treatment over the weekend. She does have urine output and currently she is not fluid overloaded. Patient is complaining of constipation today. No other complaints. She has been afebrile Patient has an AV fistula in her right forearm which is not mature yet. She was looking at possibly setting up as outpatient at the [facility] on [facility] [address] This is the closest to her home Objective - Vital Signs Vital signs: Vital Signs Temp 98.5 F 07/25/17 08:35 Pulse 64 07/25/17 08:35 Resp 18 07/25/17 08:35 BP 142/67 07/25/17 08:35 Pulse Ox 96 07/25/17 08:35 Intake & Output 07/24/17 07/25/17 07/25/17 18:59 06:59 18:59 Intake Total 600 360 Output Total 200 Balance 400 360 Weight 97 kg 97.2 kg Intake: Oral 600 360 Output: Urine 200 Other: Voiding Method Toilet Toilet # Voids 0 - Exam Examination patient is comfortable she is not in any acute distress. Blood pressure is 142/67 Heart rate 62/m And examination of the heart S1 and S2 Examination lungs bilateral breath sounds are heard Abdomen is soft nontender Exam showed Lorick Los shows trace edema bilaterally YOU[employer] ADV[employer]ATE exam is grossly intact patient is moving all 4 extremities. - Labs CBC & Chem 7: 07/25/17 06:58 07/25/17 05:53 Labs: Abnormal Lab Results - Last 24 Hours (Table) 07/24/17 07/24/17 07/24/17 Range/Units 11:27 16:34 20:35 RBC (3.80-5.40) m/uL Hgb (11.4-16.0) gm/dL Hct (34.0-46.0) % Sodium (137-145) mmol/L Carbon Dioxide (22-30) mmol/L BUN (7-17) mg/dL Creatinine (0.52-1.04) mg/dL POC Glucose (mg/dL) 236 H 183 H 289 H (75-99) mg/dL 07/25/17 07/25/17 Range/Units 05:53 06:58 RBC 3.08 L (3.80-5.40) m/uL Hgb 9.2 L (11.4-16.0) gm/dL Hct 27.8 L (34.0-46.0) % Sodium 134 L (137-145) mmol/L Carbon Dioxide 21 L (22-30) mmol/L BUN 31 H (7-17) mg/dL Creatinine 3.50 H (0.52-1.04) mg/dL POC Glucose (mg/dL) (75-99) mg/dL Microbiology - Last 24 Hours (Table) 07/23/17 14:30 Blood Culture Gram Stain - Preliminary Blood Blood Culture - Preliminary Presumptive MRSA 07/22/17 16:39 Blood Culture Gram Stain - Final Blood Blood Culture - Final Methicillin resist S. aureus 07/23/17 14:30 Blood Culture - Final Blood Assessment and Plan Plan: Assessment 1. End-stage renal disease started on hemodialysis on this admission. Patient has had 3 treatments of dialysis which she tolerated well. Her permacath is now removed secondary to gram-positive bacteremia from MRSA. We will maintain her without a catheter over the weekend and insert a new catheter most likely on Thursday or Thursday. At this time she does not need renal replacement therapy and I believe she can wait over the weekend. 2. Fluid overload currently improved 3. Fever sepsis him a with 2 sets of blood cultures growing MRSA status post removal of the IJ permacath on the right side. Patient is maintained on vancomycin. She is being followed by ID. 4. Anemia of chronic disease, maintained on Aranesp we'll check iron studies. 5. CK D bone mineral disorder maintained on PhosLo 6. Hypertension currently controlled Plan Continue without dialysis. Maintain patient on oral Lasix in the meantime. We' ll plan for placement of new catheter either Thursday or Thursday.
--- NOTE | 2017-07-25 09:57 | PN ---
PROGRESS NOTE The patient is seen for followup for end-stage renal disease. She was admitted to the hospital with shortness of breath. She also had a fever of 102 degrees Fahrenheit. She has had an IJ PermCath placed about 2 weeks ago and had not been started on dialysis yet. The patient had her first treatment as inpatient. Today she will have her third treatment. Her blood cultures, however, grew gram-positive cocci resembling MRSA. Currently, patient is afebrile. She is maintained on vancomycin and Rocephin. She is being followed by ID and PermCath removal has been recommended by Infectious Disease. PHYSICAL EXAMINATION: On examination, blood pressure is 160/70, heart rate 62 per minute patient is afebrile. Examination of the heart S1, S2. Examination lungs bilateral breath sounds are heard. Decreased breath sounds at the bases. Abdomen is soft, nontender. Examination lower extremities shows trace edema bilaterally. DRILL HAND exam is grossly intact. LABS: Shows sodium 136, potassium 4.5, hemoglobin 8.3 g/dL. ASSESSMENT: 1. End-stage renal disease, recently started on hemodialysis this admission. Patient will have a third treatment today. 2. Fluid overload currently improved. The patient is maintained on IV Lasix at 80 mg q.12 hours, which we can continue. 3. Fever with blood cultures positive for Staph, presumptive Methicillin-resistant Staphylococcus aureus. Repeat blood cultures are also growing gram-positive cocci. The patient is maintained on vancomycin and Rocephin. Her catheter will be discontinued after her dialysis today and we will plan for a new catheter placement after the weekend. 4. Hypertension, currently controlled. 5. Anemia of chronic disease. Maintained on Aranesp. PLAN: Hemodialysis today following which the PermCath will be removed and we will keep her off of the catheter over the weekend and repeat blood cultures and plan for new catheter placement early next week. The patient will also need to be set up for outpatient dialysis at this time. She prefers the [facility] unit on [address] [place] [address]. MMMYESHAL / RONNAN: [id number] /
[2017-07-25 10:35] LABS: Glucose,Whole Blood 154 mg/dL (75-99)
[2017-07-25 11:36] LABS: % Iron Saturation 11.3 % (20-50)
[2017-07-25 11:37] LABS: Glucose,Whole Blood 141 mg/dL (75-99)
[2017-07-25] MEDS: CHOLECALCIFEROL 1,000 UNIT TAB PO SCH (12:17)
--- NOTE | 2017-07-25 12:27 | PN ---
PROGRESS NOTE DATE OF SERVICE: 07/24/2017. REASON FOR FOLLOWUP: Staph aureus bacteremia. INTERVAL HISTORY: The patient is afebrile. She is breathing comfortably. Denies chest pain, shortness of breath or cough. No abdominal pain or any diarrhea. PHYSICAL EXAMINATION: On examination, blood pressure 163/79 with a pulse of 79, temperature 97.6. She is 99% on room air. General description is an elderly female up in a chair in no distress. RESPIRATORY SYSTEM: Unlabored breathing. Clear to auscultation anteriorly. HEART: S1, S2. Regular rate and rhythm. ABDOMEN: Soft, no tenderness. LABS: Hemoglobin 8.3, white count 8.0 with a BUN of 41, creatinine 4.14. Blood cultures presumptive MRSA. Blood culture repeat 07/23 is also gram positive cocci. DIAGNOSTIC IMPRESSION AND PLAN: Patient with methicillin-resistant Staphylococcus aureus bacteremia in a patient admitted to the hospital with sepsis, source is likely PermCath infection. Clinically doubt pneumonia. The patient will be kept on vancomycin pharmacy to dose. Rocephin will be discontinued. The patient likely needs removal of this PermCath in order to completely clear up the infection. This was discussed in detail with the electrical technician instructor who will contacting vascular surgery to remove the PermCath after dialysis today. Blood culture should be repeated after removal of the PermCath and if those are negative in 72 hours, she should be able to go for another PermCath. MMODL / IJN: [id number] /
[2017-07-25] MEDS ORDERED: POLYETHYLENE GLYCOL 3350 17 GM POWD.PACK PO PRN (14:16)
[2017-07-25 17:00] LABS: Glucose,Whole Blood 147 mg/dL (75-99)
[2017-07-25 20:22] LABS: Glucose,Whole Blood 208 mg/dL (75-99)
[2017-07-25] MEDS: GABAPENTIN 100 MG CAP PO SCH (20:40)
[2017-07-25] MEDS: ATORVASTATIN 40 MG TAB PO SCH (20:40)
[2017-07-25] MEDS: INSULIN DETEMIR 100 UNIT/ML 10 ML VIAL SQ SCH (20:46)
[2017-07-25] MEDS: DOCUSATE 100 MG CAP PO SCH (20:47)
--- NOTE | 2017-07-25 23:35 | PN ---
PROGRESS NOTE DATE OF SERVICE: 07/25/2017 This 71-year-old woman who was admitted with change in mental status, possibly MRSA sepsis, also planned to have a new temporary dialysis catheter. At this time, the old catheter catheter has been removed. The patient has a left wrist fistula which is not mature at this time. PAST MEDICAL HISTORY: Reviewed. REVIEW OF SYSTEMS: CARDIOVASCULAR: No angina. RESPIRATORY: As mentioned earlier. GI: As mentioned earlier. : No dysuria. NERVOUS: No numbness or weakness. Current medications are reviewed and include: 1. Tylenol 650 every 6 hours p.r.n. 2. Norvasc 5 mg p.o. b.i.d. 3. Aspirin 325 mg daily. 4. Lipitor 40 mg. 6. Coreg 12.5 mg b.i.d. 7. Rocephin 1 g IV daily. 8. Vitamin D3 9. Colace. 10.Lasix. 11.Neurontin. 12.Heparin. 13.Levemir. 14.Humalog. 15.Narcan. 16.Mepilex tab. PHYSICAL EXAM: Patient is alert, oriented x2. Pulse 62, blood pressure 142/69 respirations 16, temperature 98.4, pulse ox 96% on room air. HEENT: Conjunctivae normal. Oral mucosa moist. NECK: No jugular venous distention. CARDIOVASCULAR: S23 muffled. Breath sounds diminished in the bases. A few scattered rhonchi. No crackles. ABDOMEN: Soft, obese, nontender. LEGS: No edema. No swelling. NERVOUS SYSTEM: No focal deficits. LABS: WBC 8.5, hemoglobin is 9.2. Other labs are noted. ASSESSMENT: 1. Change in mental status. Possible methicillin-resistant Staphylococcus aureus sepsis from the infected dialysis catheter. 2. Acute urinary tract infection. 3. Metabolic encephalopathy, change in mental status secondary to sepsis. 4. Acute on chronic renal failure started on new hemodialysis with chronic kidney disease stage 5. 5. Anemia, normocytic anemia of chronic disease. 6. Diabetes mellitus type 2. RECOMMENDATIONS AND DISCUSSION: The patient to continue with current medications, continue with symptomatic treatment. Otherwise at this time, I would recommend continuing with broad-spectrum IV antibiotics at this time. The patient is currently on vancomycin. The level should be monitored. Otherwise vancomycin, Rocephin. Infectious Disease evaluation has been sought. The random vancomycin level today is 31.1. Prognosis guarded. Further recommendations to follow. MMODL / IJN: [id number] / BRITTANY
[2017-07-26] MEDS: VALSARTAN 80 MG TAB PO SCH (07:01)
[2017-07-26 07:22] LABS: Glucose,Whole Blood 94 mg/dL (75-99)
[2017-07-26] MEDS: INSULIN LISPRO (humaLOG) 300 UNIT/3 ML VIAL SQ SCH ×4 (07:39→20:39)
[2017-07-26] MEDS: FUROSEMIDE 10 MG/ML 10 ML VIAL IV SCH ×2 (07:43→20:28)
[2017-07-26] MEDS: CARVEDILOL 12.5 MG TAB PO SCH ×2 (07:43→17:08)
[2017-07-26] MEDS: HEPARIN SODIUM,PORCINE 5,000 UNIT/ML 1 ML VIAL SQ SCH (07:43)
[2017-07-26] MEDS: amLODIPine 5 MG TAB PO SCH ×2 (07:44→20:27)
[2017-07-26] MEDS: CALCIUM ACETATE 667 MG CAP PO SCH ×3 (07:44→17:08)
[2017-07-26] MEDS: DOCUSATE 100 MG CAP PO SCH ×2 (07:44→20:27)
[2017-07-26 07:51] LABS: Calcium 8.8 mg/dL (8.4-10.2)
[2017-07-26 07:53] LABS: Basophils # (A) 0.1 k/uL (0-0.2); Basophils % (A) 1 %; CH 30.1; CHCM 32.1; Eosinophils # (A) 0.3 k/uL (0-0.7); Eosinophils % (A) 5 %; HCT 26.9 % (34.0-46.0); HDW 2.46; HGB 8.5 gm/dL (11.4-16.0); Luc # (Auto) 0.23; Luc % (Auto) 3; Lymphocytes # (A) 1.8 k/uL (1.0-4.8); Lymphocytes % (A) 26 %; MCH 29.7 pg (25.0-35.0); MCHC 31.5 g/dL (31.0-37.0); MCV 94.4 fL (80.0-100.0); Mean Platelet Volume 8.4; Monocytes # (A) 0.6 k/uL (0-1.0); Monocytes % (A) 9 %; Neutrophils # (A) 3.9 k/uL (1.3-7.7); Neutrophils % (A) 56 %; RBC 2.85 m/uL (3.80-5.40); RDW 13.7 % (11.5-15.5); WBC (Perox) 7.29
[2017-07-26] MEDS: CHOLECALCIFEROL 1,000 UNIT TAB PO SCH (11:51)
[2017-07-26 12:18] LABS: Glucose,Whole Blood 242 mg/dL (75-99)
--- NOTE | 2017-07-26 14:22 | PN ---
PROGRESS NOTE DATE OF SERVICE: 07/26/2017. The patient is seen for followup for end-stage renal disease. She was admitted with fever and fluid overload. Patient has been dialyzed and volume status has improved significantly. Blood cultures have grown MRSA and therefore her right IJ PermCath was discontinued. Repeat blood cultures are pending. Catheter tip culture is in progress. On examination, patient feels well. She denies any significant complaints. Blood pressure is 156/68, heart rate 57 per minute. She is afebrile. Examination of the heart: S1, S2. Examination lungs: Bilateral breath sounds are heard. Decreased breath sounds on bases. Abdomen is soft, nontender. Examination lower extremities shows no evidence of edema. SUPERVISOR TRAVEL TRAILER exam is grossly intact. LABS: Sodium 134, potassium 5.0, chloride 101, BUN 54, serum creatinine 4.9, hemoglobin 8.5 g/dL. ASSESSMENT: 1. End-stage renal disease, started on hemodialysis on this admission, currently without an access secondary to MRSA bacteremia and sepsis. Will follow up on repeat blood cultures and we will plan a new catheter placement once all cultures are negative. The patient is maintained on vancomycin. 2. MRSA bacteremia. Maintained on vancomycin. Repeat blood cultures have been drawn today. Catheter will be replaced once blood cultures are negative. The patient does not need any treatment today. 3. Fluid overload, currently improved. Patient remains on IV Lasix, which we can continue for now since her potassium is borderline. 4. Anemia, currently maintained on Aranesp. Iron saturation was at 11.3%. The patient will be started on IV iron. PLAN: Continue Aranesp. Start IV iron as hemoglobin has dropped further and we will repeat labs in a.m. Continue with the IV Lasix. MMODL / IJN: [id number] /
[2017-07-26 17:14] LABS: Glucose,Whole Blood 270 mg/dL (75-99)
[2017-07-26] MEDS ORDERED: HEPARIN SODIUM,PORCINE 10,000 UNIT/ML 1 ML VIAL IV ONE (18:00)
[2017-07-26] MEDS ORDERED: HEPARIN SODIUM,PORCINE 5,000 UNIT/ML 1 ML VIAL IV PRN (18:00)
--- NOTE | 2017-07-26 18:19 | US ---
EXAMINATION TYPE: US venous doppler duplex UE RT DATE OF EXAM: 07/26/2017 COMPARISON: NONE CLINICAL HISTORY: 71-year-old female DVT. Patient had stent from right subclavian/jugular removed yes terday. No pain. No swelling. Patient reports being on heparin. Technique: Grayscale, color doppler, spectral doppler imaging performed of the deep veins of the uppe r extremities. SIDE PERFORMED: Right FINDINGS: Right Arm: Appears POSITIVE for DVT in right mid and lower IJV. Compression deferred in lower IJV du e to visible internal echoes. Color flow and Doppler along with compression was also performed to ass ess the subclavian, axillary, brachial, and paired radial/ulnar veins. IMPRESSION: Exam positive for DVT within the mid and lower right IJV.
[2017-07-26] MEDS: HEPARIN SODIUM,PORCINE/D5W PMX 25,000 UNIT in DEXTROSE/WATER 1 500ML.BAG IV SCH (18:27)
--- NOTE | 2017-07-26 19:06 | PN ---
PROGRESS NOTE DATE OF SERVICE: 07/26/2017 INTERVAL HISTORY: This 71 -year-old woman was admitted with change in mental status, post MRSA sepsis, is being closely monitored. New dialysis catheter is being planned to be inserted. No chest pain. No palpitations. No fever. EXAM: Alert and oriented times three. Pulse 66, blood pressure 148/77, respiratory rate 20, temperature 97.8, pulse ox 97% on room air. HEENT: Conjunctivae normal. Neck: No jugular venous distention. Cardiovascular: S1, S2. RESPIRATORY: Breath sounds diminished in the bases. No rhonchi. No crackles. ABDOMEN: Soft, nontender. No mass palpable. Legs no edema no swelling. Central nervous system: No focal deficits. Examination of the neck: Right thickened vein present. LABS: At this time shows WBC 7, hemoglobin is 8.5, sodium 134. ASSESSMENT: 1. Change in mental status. Possible Methicillin-resistant Staphylococcus aureus and sepsis from infected dialysis catheter. 2. Acute urinary tract infection. 3. Metabolic encephalopathy, change in mental status with sepsis. 4. Acute on chronic renal failure, now on hemodialysis chronic kidney stage 5. 5. Anemia normocytic anemia of chronic disease. 6. Diabetes type 2. RECOMMENDATIONS AND DISCUSSION: Continue current management, continue symptomatic treatment. Continue antibiotics. Also recommend ultrasound of the right upper extremity to rule out the possibility of DVT. Guarded prognosis because of multiple complex medical issues. Further recommendations to follow. MMODL / IJN: [id number] /
[2017-07-26] MEDS: GABAPENTIN 100 MG CAP PO SCH (20:27)
[2017-07-26] MEDS: ATORVASTATIN 40 MG TAB PO SCH (20:28)
[2017-07-26 20:35] LABS: Prothrombin Time 10.4 sec (9.0-12.0)
[2017-07-26] MEDS: INSULIN DETEMIR 100 UNIT/ML 10 ML VIAL SQ SCH (20:38)
[2017-07-26 20:43] LABS: Glucose,Whole Blood 240 mg/dL (75-99)
[2017-07-26 21:11] LABS: Partial Thromboplastin Time 137.1 sec (22.0-30.0)
[2017-07-27 02:56] LABS: Basophils # (A) 0.1 k/uL (0-0.2); Basophils % (A) 1 %; CH 29.5; CHCM 31.7; Eosinophils # (A) 0.4 k/uL (0-0.7); Eosinophils % (A) 5 %; HCT 26.7 % (34.0-46.0); HDW 2.49; HGB 8.6 gm/dL (11.4-16.0); Luc # (Auto) 0.21; Luc % (Auto) 2; Lymphocytes # (A) 2.6 k/uL (1.0-4.8); Lymphocytes % (A) 31 %; MCH 30.3 pg (25.0-35.0); MCHC 32.3 g/dL (31.0-37.0); MCV 93.7 fL (80.0-100.0); Mean Platelet Volume 7.6; Monocytes # (A) 0.7 k/uL (0-1.0); Monocytes % (A) 8 %; Neutrophils # (A) 4.7 k/uL (1.3-7.7); Neutrophils % (A) 54 %; RBC 2.85 m/uL (3.80-5.40); WBC 8.6 k/uL (3.8-10.6); WBC (Perox) 8.82
[2017-07-27 03:15] LABS: Prothrombin Time 10.3 sec (9.0-12.0)
[2017-07-27 03:17] LABS: Calcium 8.8 mg/dL (8.4-10.2); Potassium 4.6 mmol/L (3.5-5.1)
--- NOTE | 2017-07-27 06:56 | PN ---
PROGRESS NOTE DATE OF SERVICE: 07/26/2017 REASON FOR FOLLOWUP: MRSA bacteremia secondary to PermCath infection. INTERVAL HISTORY: The patient is afebrile. She is breathing comfortably. Denies chest pain, shortness of breath or cough. No abdominal pain or any diarrhea. PHYSICAL EXAMINATION: On examination, blood pressure 145/72 with a pulse of 77, temperature 97.6. She is 96% on room air. General description is an elderly female, lying in bed, in no distress. RESPIRATORY SYSTEM: Unlabored breathing. Clear to auscultation anteriorly. HEART: S1, S2. Regular rate and rhythm. ABDOMEN: Soft, no tenderness. LABS: Blood culture positive for MRSA. Hemoglobin 8.5, white count 7.0. PermCath has been discontinued. Culture pending. DIAGNOSTIC IMPRESSION AND PLAN: Patient with methicillin-resistant Staphylococcus aureus bacteremia associated with the PermCath infection that has been discontinued yesterday. Blood cultures repeated today as well blood culture negative for 72 hours. for another PermCath. Continue supportive care. MMODL / IJN: [id number] /
[2017-07-27 07:39] LABS: Glucose,Whole Blood 138 mg/dL (75-99)
[2017-07-27] MEDS: INSULIN LISPRO (humaLOG) 300 UNIT/3 ML VIAL SQ SCH ×4 (07:58→20:58)
[2017-07-27] MEDS: amLODIPine 5 MG TAB PO SCH ×2 (09:15→20:56)
[2017-07-27] MEDS: CARVEDILOL 12.5 MG TAB PO SCH ×2 (09:15→17:07)
[2017-07-27] MEDS: CALCIUM ACETATE 667 MG CAP PO SCH ×3 (09:15→17:07)
[2017-07-27] MEDS: ASPIRIN 325 MG TAB PO SCH (09:16)
[2017-07-27] MEDS: DOCUSATE 100 MG CAP PO SCH ×2 (09:16→20:57)
[2017-07-27] MEDS: HEPARIN SODIUM,PORCINE/D5W PMX 25,000 UNIT in DEXTROSE/WATER 1 500ML.BAG IV SCH (10:49)
[2017-07-27] MEDS: FUROSEMIDE 10 MG/ML 10 ML VIAL IV SCH ×2 (11:15→20:57)
[2017-07-27] MEDS: SODIUM FERRIC GLUCONAT-SUCROSE 125 MG in SODIUM CHLORIDE 0.9% 100 ML IVPB SCH (11:16)
[2017-07-27 12:19] LABS: Glucose,Whole Blood 144 mg/dL (75-99)
[2017-07-27] MEDS: CHOLECALCIFEROL 1,000 UNIT TAB PO SCH (13:23)
--- NOTE | 2017-07-27 17:08 | P.CONS ---
History of Present Illness - Reason for Consult Consult date: 07/27/17 right jugular DVT, dialysis cath removed Requesting physician: Romelia Nguyen - Chief Complaint DVT at cath insertion site - History of Present Illness Pt seen today for recommendations regarding anticoagulation for thrombosis that formed at IJ dialysis cath insertion site. Pt denies any personal history of blood clots, she has never been on blood thinners before, she states her sister has history of blood clots but "she does not move". Pt denies any epistaxis, hemoptysis, hematuria, black or bloody stool while on heparin. 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 Past Anesthesia/Blood Transfusion Reactions: No Reported Reaction Past Psychological History: Anxiety Additional Psychological History / Comment(s): anxiety with procedures and sever claustrophobia Smoking Status: Never smoker Past Alcohol Use History: None Reported - Past Family History Father Family Medical History: Coronary Artery Disease (CAD), Dementia, Diabetes Mellitus, Hyperlipidemia, Hypertension Additional Family Medical History / Comment(s): CABG Mother Family Medical History: Congestive Heart Failure (CHF), Deep Vein Thrombosis ( DVT) Additional Family Medical History / Comment(s): breast CA Medications and Allergies Home Medications Medication Instructions Recorded Confirmed Type Aspirin 325 mg PO DAILY 07/22/17 07/22/17 History Calcium Acetate [Phoslo] 667 mg PO TID 07/22/17 07/22/17 History Carvedilol [Coreg] 12.5 mg PO BID 07/22/17 07/22/17 History Cholecalciferol [Vitamin D3] 5,000 unit PO DAILY 07/22/17 07/22/17 History Docusate [Colace] 100 mg PO DAILY PRN 07/22/17 07/22/17 History Fish Oil/Dha/Epa [Fish Oil 1,200 1 cap PO BID 07/22/17 07/22/17 History mg Fish Oil] Gabapentin [Neurontin] 100 mg PO HS 07/22/17 07/22/17 History Insulin Detemir [Levemir] 65 unit SQ HS 07/22/17 07/23/17 History Rosuvastatin [Crestor] 20 mg PO HS 07/22/17 07/22/17 History amLODIPine [Norvasc] 5 mg PO BID 07/22/17 07/22/17 History Insulin Lispro [humaLOG Kwikpen] 14 units SQ AC-BID@0800,1200 07/23/17 07/23/17 History Insulin Lispro [humaLOG Kwikpen] 20 units SQ AC-SUPPER 07/23/17 07/23/17 History Insulin Lispro [humaLOG Kwikpen] See Protocol SQ AC-TID 07/23/17 07/23/17 History Allergies Allergy/AdvReac Type Severity Reaction Status Date / Time No Known Allergies Allergy Verified 07/22/17 16:42 Physical Exam Vitals: Vital Signs Temp Pulse Resp BP Pulse Ox 07/27/17 15:00 97.4 F L 61 18 142/60 96 07/27/17 08:54 98 07/27/17 07:00 97.8 F 61 18 124/63 98 07/26/17 22:43 97.6 F 77 16 145/72 96 Intake and Output 07/27/17 07/27/17 07/27/17 06:59 14:59 22:59 Intake Total 148.23 189.104 Balance 148.23 189.104 Intake: Intake, IV Titration 148.23 189.104 Amount Heparin Sodium,Porcine/ 148.23 189.104 D5w Pmx 25,000 unit In Dextrose/Water 1 500ml. bag @ 18 UNITS/KG/HR 34. 99 mls/hr IV .[id number] [facility] Rx#:[id number] Other: Voiding Method Toilet Toilet # Voids 1 2 # Bowel Movements 0 1 - Constitutional General appearance: cooperative, no acute distress, obese - EENT Eyes: anicteric sclerae, PERRLA, normal appearance ENT: normal oropharynx - Neck Neck: no lymphadenopathy - Respiratory Respiratory: bilateral: CTA - Cardiovascular visible swelling is noted right side of neck Heart sounds: normal: S1, S2 Abnormal Heart Sounds: no systolic murmur, no diastolic murmur, no rub, no S3 Gallop, no S4 Gallop, no click, no other leg Peripheral Edema: bilateral: Trace - Gastrointestinal General gastrointestinal: no absent bowel sounds, no decreased bowel sounds, no distended, no hepatomegaly, no hyperactive bowel sounds, normal bowel sounds, no organomegaly, no rigid, no scaphoid, soft, no splenomegaly, no tenderness, no umbilical hernia, no ventral hernia - Integumentary Integumentary: normal - Neurologic Neurologic: CNII-XII intact - Musculoskeletal Musculoskeletal: generalized weakness, strength equal bilaterally - Psychiatric Psychiatric: A&O x's 3, appropriate affect, intact judgment & insight Results CBC & Chem 7: 07/27/17 02:17 07/27/17 02:17 Labs: Abnormal Lab Results - Last 24 Hours (Table) 07/26/17 07/26/17 07/26/17 Range/Units 17:04 19:55 20:29 RBC (3.80-5.40) m/uL Hgb (11.4-16.0) gm/dL Hct (34.0-46.0) % APTT 137.1 H* (22.0-30.0) sec Sodium (137-145) mmol/L BUN (7-17) mg/dL Creatinine (0.52-1.04) mg/dL Glucose (74-99) mg/dL POC Glucose (mg/dL) 270 H 240 H (75-99) mg/dL 07/27/17 07/27/17 07/27/17 Range/Units 02:17 02:17 02:17 RBC 2.85 L (3.80-5.40) m/uL Hgb 8.6 L (11.4-16.0) gm/dL Hct 26.7 L (34.0-46.0) % APTT 87.0 H (22.0-30.0) sec Sodium 133 L (137-145) mmol/L BUN 64 H (7-17) mg/dL Creatinine 5.90 H* (0.52-1.04) mg/dL Glucose 194 H (74-99) mg/dL POC Glucose (mg/dL) (75-99) mg/dL 07/27/17 07/27/17 07/27/17 Range/Units 07:14 09:45 12:16 RBC (3.80-5.40) m/uL Hgb (11.4-16.0) gm/dL Hct (34.0-46.0) % APTT 49.5 H (22.0-30.0) sec Sodium (137-145) mmol/L BUN (7-17) mg/dL Creatinine (0.52-1.04) mg/dL Glucose (74-99) mg/dL POC Glucose (mg/dL) 138 H 144 H (75-99) mg/dL Microbiology - Last 24 Hours (Table) 07/26/17 14:10 Blood Culture - Preliminary Blood No Growth after 24 hours 07/25/17 08:10 Catheter Tip Culture - Final Catheter Tip Methicillin resist S. aureus CT Scan - head: report reviewed Venous US: report reviewed Assessment and Plan (1) Thrombosis due to arteriovenous access device for hemodialysis Narrative/Plan: Pt is currently on heparin drip. Pt has provoked clot with no previous personal history of blood clots. The catheter has now been removed. Recommendation is for 3 mo anticoagulation s/p catheter related blood clot. Could use eliquis or coumadin which ever PCP is more comfortable prescribing and monitoring. No further work up from Hem standpoint at this time. Status: Acute
[2017-07-27 17:16] LABS: Glucose,Whole Blood 159 mg/dL (75-99)
[2017-07-27] MEDS ORDERED: VANCOMYCIN 1,000 MG in SODIUM CHLORIDE 0.9% 250 ML IVPB ONE (18:00)
--- NOTE | 2017-07-27 19:29 | PN ---
PROGRESS NOTE Patient is seen for followup for end-stage renal disease. She is currently sitting up in bed. The patient had felt not like structure in the neck following which an ultrasound was done with venous Dopplers and the patient was found to have a DVT in the mid and lower IJ. Her IJ PermCath has been removed and currently she is maintained on IV heparin. This morning, patient is not short of breath. She denies any other complaints. PHYSICAL EXAMINATION: Blood pressure is 124/63, heart rate 61 per minute. Patient is afebrile. Examination of the heart S1, S2. Examination lungs bilateral breath sounds are heard. Abdomen is soft, nontender. Examination lower extremities shows no significant edema. C[employer] REGISTER SERVICER exam is grossly intact. LABS SHOW: Sodium 133, potassium 4.6, hemoglobin 8.6 g/dL. ASSESSMENT: 1. End-stage renal disease, on hemodialysis, currently without an access. Blood cultures drawn yesterday are still pending. The patient does not need to be dialyzed today. We will wait for her final blood cultures before placement of catheter. 2. Right IJ deep vein thrombosis at the site of the PermCath placement. Currently maintained on heparin. 3. Fluid overload, currently improved. 4. Anemia with iron deficiency, maintained on IV iron. 5. Methicillin-resistant Staphylococcus aureus bacteremia, status post removal of IJ PermCath. PLAN: Follow up on the cultures drawn yesterday. No need for renal replacement therapy today. We will evaluate tomorrow for placement of an access for dialysis. MMODL / IJN: [id number] /
--- NOTE | 2017-07-27 19:37 | P.PN ---
Subjective Date of service Progress note being dictated for Dr. Nguyen. 07/23/2017.Interval history: This a 71-year-old female admitted with altered mental status, acute UTI, renal failure, hyperkalemia, acidosis, sepsis and multiple other medical issues. Received first hemodialysis treatment last night via Permacath and currently receiving second treatment. Significant improvement in sensorium, electrolytes/bicarb.Maintained on gentle IV fluid hydration. T-max 102.5. Blood cultures reporting gram-positive cocci in clusters, urine culture in progress. Normal WBC. 07/24/2017. Maintained on Rocephin and vancomycin as per infectious disease. T -max 99.1, WBC 8. Presumptive MRSA in preliminary blood culture. Evaluated by infectious disease. Hemodialysis today pending, with permacath to be removed postdialysis related to suspected line sepsis. 07/27/2017 maintained on IV antibiotics as per infectious disease. Blood culture positive for MRSA,permacath had been removed. Permacath tip positive for MRSA. Repeat blood culture currently negative at 24 hours. Replacement PermCath pending. Doppler reporting DVT in right mid and lower right IJV.evaluated by hematology, recommendations noted. Currently on heparin drip. at Afebrile. Denies chest pain, palpitations or increasing shortness of breath. Past medical history reviewed. Review of systems: CONSTITUTIONAL: fatigue, no dizziness, no syncope HEENT: No recent visual problems or hearing problems. Denied any sore throat. CARDIOVASCULAR: No chest pain, orthopnea, PND, no palpitations, no syncope. PULMONARY: No shortness of breath, no cough, no hemoptysis. GASTROINTESTINAL: No diarrhea, no nausea, no vomiting, no abdominal pain. Normoactive bowel sounds. No melena. NEUROLOGICAL: No headaches, no weakness, no numbness. HEMATOLOGICAL: Denies any bleeding or petechiae. GENITOURINARY: Denies any burning micturition, frequency, or urgency. MUSCULOSKELETAL/RHEUMATOLOGICAL: Denies any joint pain, swelling, or any muscle pain. ENDOCRINE: Denies any polyuria or polydipsia. PSYCHIATRIC: No anxiety, no depression Active Medications Acetaminophen (Tylenol Tab) 650 mg PO Q6HR PRN PRN Reason: Fever and/ or Pain Amlodipine Besylate (Norvasc) 5 mg PO BID [facility] Last Admin: 07/27/17 09:15 Dose: 5 mg Aspirin (Aspirin) 325 mg PO DAILY [facility] Last Admin: 07/27/17 09:16 Dose: 325 mg Atorvastatin Calcium (Lipitor) 40 mg PO HS [facility] Last Admin: 07/26/17 20:28 Dose: 40 mg Calcium Acetate (Phoslo) 667 mg PO TID-W/MEALS [facility] Last Admin: 07/27/17 17:07 Dose: 667 mg Carvedilol (Coreg) 12.5 mg PO BID-W/MEALS [facility] Last Admin: 07/27/17 17:07 Dose: 12.5 mg Cholecalciferol (Vitamin D3) 5,000 unit PO 1200 [facility] Last Admin: 07/27/17 13:23 Dose: 5,000 unit Darbepoetin Marquis (Aranesp) 40 mcg SQ Q7D [facility] Last Admin: 07/23/17 18:23 Dose: 40 mcg Docusate Sodium (Colace) 100 mg PO BID [facility] Last Admin: 07/27/17 09:16 Dose: 100 mg Furosemide (Lasix) 80 mg IV Q12HR [facility] Last Admin: 07/27/17 11:15 Dose: 80 mg Gabapentin (Neurontin) 100 mg PO HS [facility] Last Admin: 07/26/17 20:27 Dose: 100 mg Heparin Sodium (Porcine) (Heparin) 0 unit IV PER PROTOCOL PRN; Protocol PRN Reason: Low PTT Ceftriaxone Sodium 1,000 mg/ (Sodium Chloride) 50 mls @ 100 mls/hr IVPB Q24H [facility] Last Admin: 07/27/17 15:51 Dose: 100 mls/hr Ferric Sodium Gluconate 125 mg (/ Sodium Chloride) 110 mls @ 100 mls/hr IVPB DAILY [facility] Stop: 07/28/17 23:59 Last Admin: 07/27/17 11:16 Dose: 100 mls/hr Heparin Sodium/Dextrose 25,000 (unit/ IV Solution) 500 mls @ 34.99 mls/hr IV .[id number] AIDA; 18 UNITS/KG/HR PRN Reason: Protocol Last Admin: 07/27/17 10:49 Dose: 13 units/kg/hr, 25.27 mls/hr Vancomycin HCl 1,000 mg/ (Sodium Chloride) 250 mls @ 125 mls/hr IVPB ONCE ONE Stop: 07/27/17 19:59 Last Admin: 07/27/17 17:07 Dose: 125 mls/hr Insulin Detemir (Levemir) 65 unit SQ HS [facility] Last Admin: 07/26/17 20:38 Dose: 65 unit Insulin Human Lispro (Humalog) 0 unit SQ ACHS [facility] PRN Reason: Protocol Last Admin: 07/27/17 18:02 Dose: Not Given Miscellaneous Information (Pharmacy To Dose Iv Vancomycin) 1 each MISCELLANE DIRECTED PRN PRN Reason: Per Protocol Naloxone HCl (Narcan) 0.2 mg IV Q2M PRN PRN Reason: Opioid Reversal Polyethylene Glycol (Miralax) 17 gm PO DAILY PRN PRN Reason: Constipation Last Admin: 07/25/17 15:22 Dose: 17 gm Objective - Vital Signs Vital signs: Vital Signs Temp 97.4 F L 07/27/17 15:00 Pulse 61 07/27/17 15:00 Resp 18 07/27/17 15:00 BP 142/60 07/27/17 15:00 Pulse Ox 96 07/27/17 15:00 Intake & Output 07/27/17 07/27/17 07/28/17 06:59 18:59 06:59 Intake Total 246.202 189.104 Balance 246.202 189.104 Intake: Intake, IV Titration 246.202 189.104 Amount Heparin Sodium,Porcine/ 246.202 189.104 D5w Pmx 25,000 unit In Dextrose/Water 1 500ml. bag @ 18 UNITS/KG/HR 34. 99 mls/hr IV .[id number] [facility] Rx#:[id number] Other: Voiding Method Toilet # Voids 1 2 # Bowel Movements 0 1 - Exam PHYSICAL EXAM: VITAL SIGNS: As above GENERAL: Sitting up in chair, no acute distress HEENT: Conjunctivae normal. eyes normal. Oral mucosa moist. NECK: Right side of neck thickening/ swelling noted, No JVD. No thyroid enlargement. CARDIOVASCULAR: S1, S2 muffled. No murmur RESPIRATION: Bilateral bases diminished, scattered rhonchi , no crackles. ABDOMEN: Soft, nontender . No guarding. no masses palpable. Bowel sounds present. LEGS: Mild edema. PSYCHIATRY: Alert and oriented -3, mood and affect normal. NERVOUS SYSTEM: Cranial N 2-12 grossly normal. Moves all 4 limbs. No focal deficits. No sensory deficit. Microbiology 07/26/17 14:10 Blood Blood Culture - Preliminary No Growth after 24 hours 07/25/17 08:10 Catheter Tip Catheter Tip Culture - Final Methicillin resist S. aureus 07/23/17 14:30 Blood Blood Culture Gram Stain - Final 07/23/17 14:30 Blood Blood Culture - Final Methicillin resist S. aureus 07/22/17 16:39 Blood Blood Culture Gram Stain - Final 07/22/17 16:39 Blood Blood Culture - Final Methicillin resist S. aureus 07/23/17 14:30 Blood Blood Culture - Final 07/22/17 17:17 Urine,Voided Urine Culture - Final 07/22/17 16:39 Blood Blood Culture - Final - Labs CBC & Chem 7: 07/27/17 02:17 07/27/17 02:17 Labs: Abnormal Lab Results - Last 24 Hours (Table) 07/26/17 07/26/17 07/27/17 Range/Units 19:55 20:29 02:17 RBC 2.85 L (3.80-5.40) m/uL Hgb 8.6 L (11.4-16.0) gm/dL Hct 26.7 L (34.0-46.0) % APTT 137.1 H* (22.0-30.0) sec Sodium (137-145) mmol/L BUN (7-17) mg/dL Creatinine (0.52-1.04) mg/dL Glucose (74-99) mg/dL POC Glucose (mg/dL) 240 H (75-99) mg/dL 07/27/17 07/27/17 07/27/17 Range/Units 02:17 02:17 07:14 RBC (3.80-5.40) m/uL Hgb (11.4-16.0) gm/dL Hct (34.0-46.0) % APTT 87.0 H (22.0-30.0) sec Sodium 133 L (137-145) mmol/L BUN 64 H (7-17) mg/dL Creatinine 5.90 H* (0.52-1.04) mg/dL Glucose 194 H (74-99) mg/dL POC Glucose (mg/dL) 138 H (75-99) mg/dL 07/27/17 07/27/17 07/27/17 Range/Units 09:45 12:16 17:14 RBC (3.80-5.40) m/uL Hgb (11.4-16.0) gm/dL Hct (34.0-46.0) % APTT 49.5 H (22.0-30.0) sec Sodium (137-145) mmol/L BUN (7-17) mg/dL Creatinine (0.52-1.04) mg/dL Glucose (74-99) mg/dL POC Glucose (mg/dL) 144 H 159 H (75-99) mg/dL Microbiology - Last 24 Hours (Table) 07/26/17 14:10 Blood Culture - Preliminary Blood No Growth after 24 hours 07/25/17 08:10 Catheter Tip Culture - Final Catheter Tip Methicillin resist S. aureus Assessment and Plan Plan: 1. [ Change in mental status, possible acute UTI with sepsis-presumptive MRSA with metabolic encephalopathy secondary to sepsis, related to permacath. 2. [ Acute on chronic renal failure, end stage, with initiation of hemodialysis 3. [Anemia, normocytic, of chronic disease]. 4. [ Diabetes mellitus type 2]. 5. DVT in right mid and lower right IJV, provoked by hemodialysis cath. Plan: Continue on current medication regime ,monitoring and symptomatic treatment. Antibiotics as per infectious disease. Continue following cultures closely. Replacement permacath pending .follow closely with nephrology. Further recommendations to follow. The impression and plan of care has been dictated as directed. : I performed a H&P examination of this patient and discussed the same with the dictator. I agree with the dictator's note. Any additional findings/opinions/ etc. will be noted.
[2017-07-27 20:43] LABS: Glucose,Whole Blood 254 mg/dL (75-99)
[2017-07-27] MEDS: INSULIN DETEMIR 100 UNIT/ML 10 ML VIAL SQ SCH (20:56)
[2017-07-27] MEDS: ATORVASTATIN 40 MG TAB PO SCH (20:57)
[2017-07-27] MEDS: GABAPENTIN 100 MG CAP PO SCH (20:57)
--- NOTE | 2017-07-27 23:44 | PN ---
PROGRESS NOTE DATE OF SERVICE: 07/27/2017 REASON FOR FOLLOWUP: MRSA bacteremia secondary to Permacath infection. INTERVAL HISTORY: The patient is afebrile. She is breathing comfortably. The patient denies significant chest pain, shortness of breath or cough. No abdominal pain or any diarrhea. PHYSICAL EXAMINATION: Blood pressure is 142/60 with a pulse of 61, temperature 97.4. She is 96% on room air. General description is an elderly female up in the bed in no distress. RESPIRATORY SYSTEM: Unlabored breathing. Clear to auscultation anteriorly. HEART: S1, S2. Regular rate and rhythm. ABDOMEN: Soft. No tenderness. LABS: Hemoglobin 8.7, white count of 8.6. BUN of 64 with a creatinine of 5.30. Blood culture is so far negative. DIAGNOSTIC IMPRESSION/PLAN: Patient with MRSA bacteremia secondary to Permacath infection, status post removal of the Permacath. Waiting for the blood culture done 07/26 to be negative ( ) before the patient could get another Permacath. Family present at the bedside. Their questions were answered. MMODL / IJN: [id number] /
[2017-07-28 07:11] LABS: Glucose,Whole Blood 107 mg/dL (75-99)
[2017-07-28] MEDS: CARVEDILOL 12.5 MG TAB PO SCH ×2 (07:28→16:47)
[2017-07-28] MEDS: CALCIUM ACETATE 667 MG CAP PO SCH ×3 (07:28→16:47)
[2017-07-28] MEDS: INSULIN LISPRO (humaLOG) 300 UNIT/3 ML VIAL SQ SCH ×4 (07:28→22:44)
[2017-07-28] MEDS: amLODIPine 5 MG TAB PO SCH ×2 (07:31→20:30)
[2017-07-28] MEDS: ASPIRIN 325 MG TAB PO SCH (07:32)
[2017-07-28] MEDS: DOCUSATE 100 MG CAP PO SCH ×2 (07:33→20:30)
[2017-07-28] MEDS: FUROSEMIDE 10 MG/ML 10 ML VIAL IV SCH ×2 (08:00→20:30)
[2017-07-28 08:47] LABS: Basophils # (A) 0.1 k/uL (0-0.2); Basophils % (A) 1 %; CHCM 31.8; Eosinophils # (A) 0.4 k/uL (0-0.7); Eosinophils % (A) 5 %; HCT 28.2 % (34.0-46.0); HDW 2.41; Luc # (Auto) 0.21; Luc % (Auto) 3; Lymphocytes # (A) 2.3 k/uL (1.0-4.8); Lymphocytes % (A) 29 %; MCH 30.2 pg (25.0-35.0); MCHC 31.9 g/dL (31.0-37.0); MCV 94.9 fL (80.0-100.0); Mean Platelet Volume 8.2; Monocytes # (A) 0.5 k/uL (0-1.0); Monocytes % (A) 7 %; Neutrophils # (A) 4.4 k/uL (1.3-7.7); Neutrophils % (A) 55 %; RBC 2.97 m/uL (3.80-5.40); RDW 13.4 % (11.5-15.5); WBC 7.9 k/uL (3.8-10.6); WBC (Perox) 8.12
[2017-07-28 08:50] LABS: INR 1.1 (<1.2); Prothrombin Time 10.7 sec (9.0-12.0)
[2017-07-28] MEDS: SODIUM FERRIC GLUCONAT-SUCROSE 125 MG in SODIUM CHLORIDE 0.9% 100 ML IVPB SCH (09:37)
[2017-07-28] MEDS: HEPARIN SODIUM,PORCINE/D5W PMX 25,000 UNIT in DEXTROSE/WATER 1 500ML.BAG IV SCH (10:30)
[2017-07-28] MEDS: CHOLECALCIFEROL 1,000 UNIT TAB PO SCH (12:28)
[2017-07-28 15:55] LABS: Glucose,Whole Blood 151 mg/dL (75-99)
[2017-07-28 16:57] LABS: Glucose,Whole Blood 181 mg/dL (75-99)
[2017-07-28] MEDS: GABAPENTIN 100 MG CAP PO SCH (20:30)
[2017-07-28] MEDS: ATORVASTATIN 40 MG TAB PO SCH (20:30)
[2017-07-28 21:10] LABS: Glucose,Whole Blood 223 mg/dL (75-99)
[2017-07-28] MEDS: INSULIN DETEMIR 100 UNIT/ML 10 ML VIAL SQ SCH (22:43)
[2017-07-29 07:41] LABS: Glucose,Whole Blood 131 mg/dL (75-99)
[2017-07-29] MEDS: INSULIN LISPRO (humaLOG) 300 UNIT/3 ML VIAL SQ SCH ×4 (07:48→21:04)
--- NOTE | 2017-07-29 07:51 | PN ---
PROGRESS NOTE Patient is seen for followup for end-stage renal disease. She was admitted to the hospital with fever and fluid overload. Patient was found to have MRSA bacteremia from the PermCath and the catheter was discontinued on 07/25/2017. Patient had 3 treatments of hemodialysis after which her volume status had improved and she remained off of dialysis for now. She was also noted to have a DVT in her right IJ where the catheter was and is currently maintained on heparin. Patient does have a left forearm Sydnee AV fistula, she is being followed by Vascular Surgery. Her repeat blood cultures on 07/26 are negative thus far and I have discussed with Dr. Ji regarding placement of dialysis catheter, most likely tomorrow. Currently, patient denies any shortness of breath, nausea, vomiting. Blood pressure is 150/60 and heart rate 62 per minute. She is afebrile. Examination of the heart S1, S2. Examination of the lungs, bilateral breath sounds are heard. Abdomen is soft, nontender. Examination of the lower extremities shows no significant edema. MEDICAL REGISTRAR exam is grossly intact. LABS: Show a hemoglobin of 9.0. I do not see a BMP from today. ASSESSMENT: 1. End-stage renal disease, currently without dialysis catheter and doing fairly well. Will plan for dialysis catheter placement tomorrow. I have discussed with Dr. Ji regarding possibly placing it in the left IJ. I do not see any labs. They were ordered this morning, but patient has had a hard time having blood draws. 2. Fluid overload, currently improved. 3. Right IJ deep venous thrombosis at the site of the PermCath. Maintained on IV heparin. 4. Methicillin-resistant Staphylococcus aureus bacteremia, status post removal of PermCath, maintained on vancomycin, being followed by Infectious Disease. PLAN: I would have liked to see labs from today; however, it has been hard to draw labs. We will plan for catheter placement tomorrow and dialysis tomorrow and we can obtain lab work along with dialysis. Continue antibiotics. MMODL / IJN: [id number] /
[2017-07-29 08:44] LABS: Basophils # (A) 0.1 k/uL (0-0.2); Basophils % (A) 1 %; CH 30.2; CHCM 32.4; Eosinophils # (A) 0.4 k/uL (0-0.7); Eosinophils % (A) 5 %; HCT 26.7 % (34.0-46.0); HDW 2.47; HGB 8.5 gm/dL (11.4-16.0); Luc # (Auto) 0.14; Luc % (Auto) 2; Lymphocytes % (A) 26 %; MCHC 32.1 g/dL (31.0-37.0); MCV 93.6 fL (80.0-100.0); Mean Platelet Volume 8.4; Monocytes # (A) 0.4 k/uL (0-1.0); Monocytes % (A) 5 %; Neutrophils # (A) 4.8 k/uL (1.3-7.7); Neutrophils % (A) 61 %; Prothrombin Time 10.3 sec (9.0-12.0); RBC 2.85 m/uL (3.80-5.40); RDW 13.9 % (11.5-15.5); WBC 7.9 k/uL (3.8-10.6)
[2017-07-29 08:55] LABS: Calcium 9.1 mg/dL (8.4-10.2); Potassium 5.3 mmol/L (3.5-5.1)
[2017-07-29] MEDS ORDERED: IV FLUID CONTINUATION 1,000 ML IV ONE (08:55)
[2017-07-29] MEDS ORDERED: fentaNYL (PF) 50 MCG/ML 2 ML AMP ONE (08:56)
[2017-07-29] MEDS ORDERED: LIDOCAINE 2% INJ 20 MG/ML (20 ML MDV) ONE ×2 (08:56→09:09)
[2017-07-29] MEDS ORDERED: fentaNYL (PF) 50 MCG/ML 2 ML AMP IV ONE (08:58)
[2017-07-29] MEDS: LIDOCAINE 2% INJ 20 MG/ML SQ ONE ×4 (09:01→09:08)
[2017-07-29] MEDS ORDERED: IODIXANOL 320 MG/ML 100 ML IV ONE (09:06)
[2017-07-29] MEDS ORDERED: LIDOCAINE 2% INJ 20 MG/ML SQ ONE (09:10)
[2017-07-29] MEDS ORDERED: HEPARIN SODIUM 1,000 UN/ML (10ML VL) ONE (09:16)
[2017-07-29] MEDS: HEPARIN SODIUM,PORCINE/D5W PMX 25,000 UNIT in DEXTROSE/WATER 1 500ML.BAG IV SCH ×2 (10:16→12:26)
[2017-07-29] MEDS: CALCIUM ACETATE 667 MG CAP PO SCH ×3 (10:17→17:50)
[2017-07-29] MEDS: amLODIPine 5 MG TAB PO SCH ×2 (10:18→20:59)
[2017-07-29] MEDS: FUROSEMIDE 10 MG/ML 10 ML VIAL IV SCH ×2 (10:18→17:50)
[2017-07-29] MEDS: DOCUSATE 100 MG CAP PO SCH ×2 (10:18→20:59)
[2017-07-29] MEDS: ASPIRIN 325 MG TAB PO SCH (10:18)
[2017-07-29] MEDS: CARVEDILOL 12.5 MG TAB PO SCH ×2 (10:20→17:50)
[2017-07-29] MEDS ORDERED: APIXABAN 5 MG TAB PO ONE (10:53)
[2017-07-29] MEDS ORDERED: APIXABAN 5 MG TAB PO SCH (11:00)
--- NOTE | 2017-07-29 11:04 | PN ---
PROGRESS NOTE DATE OF SERVICE: 07/28/2017 REASON FOR FOLLOWUP: MRSA bacteremia secondary to PermCath infection. INTERVAL HISTORY: The patient is afebrile. She is breathing comfortably. Denies any chest pain, shortness of breath or cough. No abdominal pain or any diarrhea. PHYSICAL EXAMINATION: On examination, blood pressure 150/68 with a pulse of 62, temperature 97.1. She is 97% on room air. General description is an elderly female up in the bed in no distress. RESPIRATORY SYSTEM: Unlabored breathing, clear to auscultation anteriorly. HEART: S1, S2. Regular rate and rhythm. ABDOMEN: Soft, no tenderness. LABS: Hemoglobin 9, white count of 7.9. BUN of 64, creatinine 5.90. Blood cultures from 07/26 so far negative. DIAGNOSTIC IMPRESSION AND PLAN: Patient with methicillin-resistant Staphylococcus aureus bacteremia secondary to PermCath infection. Blood culture repeat 07/26 has been negative after removal of the PermCath. If the blood cultures remain to be negative by 07/30, she will be able to go for another PermCath. Patient will continue on vancomycin pharmacy to dose through dialysis for another 2 weeks to finish out antibiotic therapy. MMODL / IJN: [id number] /
[2017-07-29] MEDS: APIXABAN 5 MG TAB PO SCH ×2 (11:13→20:58)
[2017-07-29 11:57] LABS: Glucose,Whole Blood 154 mg/dL (75-99)
[2017-07-29] MEDS: CHOLECALCIFEROL 1,000 UNIT TAB PO SCH (12:28)
--- NOTE | 2017-07-29 12:29 | IR ---
Fluoroscopy HISTORY: Renal failure 1.1 minutes fluoroscopy time supplied to the referring clinician. 628 intraoperative C-arm images do cument the procedure. See dictated report from vascular surgery.
--- NOTE | 2017-07-29 15:46 | P.PN ---
Subjective Patient is seen in follow-up for end-stage renal disease. She has a maturing left upper extremity AV fistula. She was noted to have MRSA bacteremia and a permacath was discontinued on July 25. She had a new catheter placed this morning and is currently undergoing hemodialysis. She is currently resting in bed. Denies chest pain. No vomiting or diarrhea. Hemodynamically stable. She is maintained on anticoagulation for right IJ DVT. Vital signs are stable. General: The patient appeared well nourished and normally developed. HEENT: Head exam is unremarkable. Neck is without jugular venous distension. LUNGS: Lungs are clear to auscultation and percussion. Breath sounds decreased. HEART: Rate and Rhythm are regular. First and second heart sounds normal. No murmurs, rubs or gallops. ABDOMEN: Abdominal exam reveals normal bowel sounds. Non-tender and non- distended. No evidence of peritonitis. EXTREMITITES: No clubbing, cyanosis, or edema. Objective - Vital Signs Vital signs: Vital Signs Temp 97.2 F L 07/29/17 09:54 Pulse 68 07/29/17 09:54 Resp 16 07/29/17 09:54 BP 164/82 07/29/17 09:54 Pulse Ox 96 07/29/17 09:54 Intake & Output 07/28/17 07/29/17 07/29/17 18:59 06:59 18:59 Intake Total 642.177 190.228 Balance 642.177 190.228 Weight 93.5 kg Intake: Intake, IV Titration 642.177 190.228 Amount Heparin Sodium,Porcine/ 642.177 190.228 D5w Pmx 25,000 unit In Dextrose/Water 1 500ml. bag @ 18 UNITS/KG/HR 34. 99 mls/hr IV .[id number] [facility] Rx#:[id number] Other: Voiding Method Toilet Toilet # Voids 1 1 3 # Bowel Movements 0 0 - Labs CBC & Chem 7: 07/29/17 08:03 07/29/17 08:03 Labs: Abnormal Lab Results - Last 24 Hours (Table) 07/28/17 07/28/17 07/28/17 Range/Units 12:22 16:29 16:55 RBC (3.80-5.40) m/uL Hgb (11.4-16.0) gm/dL Hct (34.0-46.0) % APTT 101.2 H* (22.0-30.0) sec Sodium (137-145) mmol/L Potassium (3.5-5.1) mmol/L Carbon Dioxide (22-30) mmol/L BUN (7-17) mg/dL Creatinine (0.52-1.04) mg/dL Glucose (74-99) mg/dL POC Glucose (mg/dL) 151 H 181 H (75-99) mg/dL 07/28/17 07/28/17 07/29/17 Range/Units 21:08 21:36 07:20 RBC (3.80-5.40) m/uL Hgb (11.4-16.0) gm/dL Hct (34.0-46.0) % APTT 56.0 H (22.0-30.0) sec Sodium (137-145) mmol/L Potassium (3.5-5.1) mmol/L Carbon Dioxide (22-30) mmol/L BUN (7-17) mg/dL Creatinine (0.52-1.04) mg/dL Glucose (74-99) mg/dL POC Glucose (mg/dL) 223 H 131 H (75-99) mg/dL 07/29/17 07/29/17 07/29/17 Range/Units 08:03 08:03 11:54 RBC 2.85 L (3.80-5.40) m/uL Hgb 8.5 L (11.4-16.0) gm/dL Hct 26.7 L (34.0-46.0) % APTT (22.0-30.0) sec Sodium 135 L (137-145) mmol/L Potassium 5.3 H (3.5-5.1) mmol/L Carbon Dioxide 16 L (22-30) mmol/L BUN 90 H* (7-17) mg/dL Creatinine 6.05 H* (0.52-1.04) mg/dL Glucose 112 H (74-99) mg/dL POC Glucose (mg/dL) 154 H (75-99) mg/dL Microbiology - Last 24 Hours (Table) 07/26/17 14:10 Blood Culture - Preliminary Blood No Growth after 48 hours Assessment and Plan Plan: Assessment: #1. End-stage renal disease started on hemodialysis this admission. Etiology is diabetic kidney disease. She has a permacath in place and also a maturing right upper extremity AV fistula. #2. Sepsis secondary to MRSA bacteremia. Initial permacath was discontinued on July 25 and a new one was placed July 29. #3. Insulin-dependent diabetes mellitus. #4. Hyperkalemia secondary to chronic kidney disease. Improved postdialysis. #5. Volume overload. Improved. #6. Anemia of chronic kidney disease. Plan: Hemodialysis today with goal 2-3 L ultrafiltration. Next treatment Thursday. Maintain PhosLo with meals. Continue with IV antibiotics per infectious disease recommendations. Maintain Aranesp. Change Lasix to oral. Outpatient hemodialysis has been set up.
[2017-07-29 17:00] LABS: Glucose,Whole Blood 119 mg/dL (75-99)
--- NOTE | 2017-07-29 17:13 | PN ---
PROGRESS NOTE DATE OF SERVICE: 07/29/2017 REASON FOR FOLLOWUP: MRSA bacteremia secondary to PermCath infection. INTERVAL HISTORY: The patient is afebrile. The patient did get a PermCath in the right groin area with the fistula being matured on the left side and a clot on the right subclavian. The patient denies any chest pain, shortness of breath or cough. No abdominal pain or any diarrhea. PHYSICAL EXAMINATION: Blood pressure 154/82 with a pulse of 68, temperature 97.2. She is 96% on room air. General description is an elderly female lying in bed in no distress. RESPIRATORY SYSTEM: Unlabored breathing. Clear to auscultation anteriorly. HEART: S1, S2. Regular rate and rhythm. ABDOMEN: Soft. No tenderness. LAB: Hemoglobin 8.5, white count 7.9 with a BUN of 90, creatinine 6.05. Blood culture from 07/26 has been negative. DIAGNOSTIC IMPRESSION/PLAN: Patient with MRSA bacteremia secondary to Permacath infection, status post removal of the same. Follow-up blood culture from 07/26 has been negative. She did get a Permacath in the right groin. She will continue on vancomycin, Pharmacy to dose, through dialysis for another 2 weeks with close outpatient followup. MMODL / IJN: [id number] /
--- NOTE | 2017-07-29 17:48 | OP ---
OPERATIVE REPORT PREOPERATIVE DIAGNOSIS: Acute renal failure. PROCEDURE: Placement of dialysis catheter. Ultrasound-guided right femoral approach using 36 cm dialysis catheter. This patient has history of chronic renal failure. Patient had a catheter placed in the right IJ at [facility] and it has been infected. It has been removed. Ultrasound showed patient has a DVT of the right jugular vein. The patient also has been on heparin. Patient had a ( ) fistula created at [facility] in the summer. Discussed with the patient and the retaining room cutter. We will place a permanent catheter via right femoral approach. Patient needs urgent dialysis catheter and patient will follow up with vascular surgeon at [facility], who has been taking care of this patient. Patient was brought to the yard laborer. Right groin was prepped and draped in the usual sterile manner. Ultrasound-guided micropuncture into the right femoral vein under local anesthesia. Micropuncture guidewire was passed and a 4-Divehi sheath was advanced on top of the guidewire. The regular guidewire was passed. After that, a tunnel was created. Through the tunnel we brought the 36 cm dialysis catheter. After that, we advanced the dilator, and sheath on top of the guidewire. Then we introduced the dialysis catheter and sheath was removed. Catheter was in the superior vena cava. It was flushed with heparin and saline and secured with Vicryl and nylon, dressing applied. Patient tolerated the procedure well. ANJUM / RONNAN: [id number] /
[2017-07-29] MEDS: FUROSEMIDE 80 MG TAB PO SCH (17:54)
[2017-07-29] MEDS: GABAPENTIN 100 MG CAP PO SCH (20:58)
[2017-07-29] MEDS: ATORVASTATIN 40 MG TAB PO SCH (20:58)
[2017-07-29 21:08] LABS: Glucose,Whole Blood 179 mg/dL (75-99)
[2017-07-29] MEDS: INSULIN DETEMIR 100 UNIT/ML 10 ML VIAL SQ SCH (22:08)
[2017-07-29 22:33] VITALS: RESP 16
[2017-07-30] MEDS: INSULIN LISPRO (humaLOG) 300 UNIT/3 ML VIAL SQ SCH ×2 (07:29→12:49)
[2017-07-30] MEDS: DOCUSATE 100 MG CAP PO SCH (07:32)
[2017-07-30] MEDS: APIXABAN 5 MG TAB PO SCH (07:32)
[2017-07-30] MEDS: FUROSEMIDE 80 MG TAB PO SCH (07:32)
[2017-07-30] MEDS: CALCIUM ACETATE 667 MG CAP PO SCH ×2 (07:32→13:08)
[2017-07-30] MEDS: ASPIRIN 325 MG TAB PO SCH (07:32)
[2017-07-30] MEDS: CARVEDILOL 12.5 MG TAB PO SCH (07:33)
[2017-07-30] MEDS: amLODIPine 5 MG TAB PO SCH (07:33)
[2017-07-30 07:42] LABS: Glucose,Whole Blood 84 mg/dL (75-99)
[2017-07-30 08:12] VITALS: BP 175/72; PULSE 75; TEMP 97.5
[2017-07-30 08:25] LABS: Basophils # (A) 0.1 k/uL (0-0.2); Basophils % (A) 1 %; CH 29.3; CHCM 31.6; Eosinophils # (A) 0.3 k/uL (0-0.7); Eosinophils % (A) 4 %; HCT 29.3 % (34.0-46.0); HDW 2.47; HGB 9.3 gm/dL (11.4-16.0); Luc # (Auto) 0.11; Luc % (Auto) 2; Lymphocytes # (A) 1.8 k/uL (1.0-4.8); Lymphocytes % (A) 25 %; MCH 29.5 pg (25.0-35.0); MCHC 31.7 g/dL (31.0-37.0); MCV 93.2 fL (80.0-100.0); Mean Platelet Volume 7.3; Monocytes # (A) 0.5 k/uL (0-1.0); Monocytes % (A) 7 %; Neutrophils # (A) 4.4 k/uL (1.3-7.7); Neutrophils % (A) 62 %; RBC 3.14 m/uL (3.80-5.40); RDW 13.3 % (11.5-15.5); WBC 7.2 k/uL (3.8-10.6); WBC (Perox) 7.71
[2017-07-30 08:44] LABS: Calcium 9.2 mg/dL (8.4-10.2); Potassium 4.7 mmol/L (3.5-5.1)
--- NOTE | 2017-07-30 11:12 | P.PN ---
Subjective Patient is seen in follow-up for end-stage renal disease. She has a maturing left upper extremity AV fistula. She was noted to have MRSA bacteremia and permacath was discontinued on July 25. She had a new groin catheter placed on July 29 and underwent hemodialysis. She is currently resting in bed. Denies chest pain. No vomiting or diarrhea. Hemodynamically stable. She is maintained on anticoagulation for right IJ DVT. No active complaints at this time. Vital signs are stable. General: The patient appeared well nourished and normally developed. HEENT: Head exam is unremarkable. Neck is without jugular venous distension. LUNGS: Lungs are clear to auscultation and percussion. Breath sounds decreased. HEART: Rate and Rhythm are regular. First and second heart sounds normal. No murmurs, rubs or gallops. ABDOMEN: Abdominal exam reveals normal bowel sounds. Non-tender and non- distended. No evidence of peritonitis. EXTREMITITES: No clubbing, cyanosis, or edema. Objective - Vital Signs Vital signs: Vital Signs Temp 97.5 F L 07/30/17 07:00 Pulse 75 07/30/17 07:00 Resp 16 07/30/17 07:00 BP 175/72 07/30/17 07:00 Pulse Ox 95 07/30/17 07:00 Intake & Output 07/29/17 07/30/17 07/30/17 18:59 06:59 18:59 Intake Total 1000 Balance 1000 Weight 93.5 kg Intake: Intake, IV Titration 1000 Amount IV Fluid Continuation 1, 1000 000 ml As IV .[facility] Rx#:[id number] Other: Voiding Method Toilet Toilet # Voids 3 1 # Bowel Movements 0 0 - Labs CBC & Chem 7: 07/30/17 07:46 07/30/17 07:46 Labs: Abnormal Lab Results - Last 24 Hours (Table) 07/29/17 07/29/17 07/29/17 Range/Units 11:54 16:58 21:04 RBC (3.80-5.40) m/uL Hgb (11.4-16.0) gm/dL Hct (34.0-46.0) % BUN (7-17) mg/dL Creatinine (0.52-1.04) mg/dL POC Glucose (mg/dL) 154 H 119 H 179 H (75-99) mg/dL 07/30/17 07/30/17 Range/Units 07:46 07:46 RBC 3.14 L (3.80-5.40) m/uL Hgb 9.3 L (11.4-16.0) gm/dL Hct 29.3 L (34.0-46.0) % BUN 33 H (7-17) mg/dL Creatinine 3.43 H (0.52-1.04) mg/dL POC Glucose (mg/dL) (75-99) mg/dL Microbiology - Last 24 Hours (Table) 07/26/17 14:10 Blood Culture - Preliminary Blood No Growth after 72 hours Assessment and Plan Plan: Assessment: #1. End-stage renal disease started on hemodialysis this admission. Etiology is diabetic kidney disease. She has a groin catheter in place and also a maturing right upper extremity AV fistula. #2. Sepsis secondary to MRSA bacteremia. Initial permacath was discontinued on July 25 and a new access was placed July 29. #3. Insulin-dependent diabetes mellitus. #4. Hyperkalemia secondary to chronic kidney disease. Improved postdialysis. #5. Volume overload. Improved. #6. Anemia of chronic kidney disease. Plan: Hemodialysis tomorrow with goal 2-3 L ultrafiltration. Maintain PhosLo with meals. Continue with IV antibiotics per infectious disease recommendations. Maintain Aranesp. Continue oral Lasix. Outpatient hemodialysis has been set up. Potential discharge today.
[2017-07-30] MEDS: CHOLECALCIFEROL 1,000 UNIT TAB PO SCH (11:16)
[2017-07-30 11:17] VITALS: BMI 40.2
[2017-07-30] MEDS: DARBEPOETIN ALFA 40 MCG/0.4 ML SYRINGE SQ SCH (11:40)
[2017-07-30] MEDS ORDERED: VANCOMYCIN 1,000 MG in SODIUM CHLORIDE 0.9% 250 ML IVPB ONE (12:00)
[2017-07-30 12:37] LABS: Glucose,Whole Blood 81 mg/dL (75-99)
[2017-07-30 15:38] LABS: INR 1.1 (<1.2); Prothrombin Time 11.5 sec (9.0-12.0)
--- NOTE | 2017-07-30 16:04 | P.PN ---
Subjective Progress note being dictated for Dr. Martell. 07/23/2017.Interval history: This a 71-year-old female admitted with altered mental status, acute UTI, renal failure, hyperkalemia, acidosis, sepsis and multiple other medical issues. Received first hemodialysis treatment last night via Permacath and currently receiving second treatment. Significant improvement in sensorium, electrolytes/bicarb.Maintained on gentle IV fluid hydration. T-max 102.5. Blood cultures reporting gram-positive cocci in clusters, urine culture in progress. Normal WBC. 07/24/2017. Maintained on Rocephin and vancomycin as per infectious disease. T -max 99.1, WBC 8. Presumptive MRSA in preliminary blood culture. Evaluated by infectious disease. Hemodialysis today pending, with permacath to be removed postdialysis related to suspected line sepsis. 07/27/2017 maintained on IV antibiotics as per infectious disease. Blood culture positive for MRSA,permacath had been removed. Permacath tip positive for MRSA. Repeat blood culture currently negative at 24 hours. Replacement PermCath pending. Doppler reporting DVT in right mid and lower right IJV.evaluated by hematology, recommendations noted. Currently on heparin drip. at Afebrile. Denies chest pain, palpitations or increasing shortness of breath. 07/28/2017. Repeat preliminary blood cultures post removal of PermCath remain negative. Replacement PermCath pending finalization of repeat blood cultures. Sitting up in chair, no acute distress. Afebrile. Denies chest pain, palpitations or increasing shortness of breath. Objective - Vital Signs Vital signs: Vital Signs Temp 97.1 F L 07/28/17 15:00 Pulse 62 07/28/17 15:00 Resp 18 07/28/17 15:00 BP 150/68 07/28/17 15:00 Pulse Ox 97 07/28/17 15:00 Intake & Output 07/27/17 07/28/17 07/28/17 18:59 06:59 18:59 Intake Total 189.104 500 Balance 189.104 500 Intake: Intake, IV Titration 189.104 500 Amount Heparin Sodium,Porcine/ 189.104 500 D5w Pmx 25,000 unit In Dextrose/Water 1 500ml. bag @ 18 UNITS/KG/HR 34. 99 mls/hr IV .[id number] [facility] Rx#:[id number] Other: Voiding Method Toilet Toilet # Voids 2 1 1 # Bowel Movements 1 0 - Exam PHYSICAL EXAM: VITAL SIGNS: As above GENERAL: Sitting up in chair, no acute distress HEENT: Conjunctivae normal. eyes normal. Oral mucosa moist. NECK: Right side of neck thickening/ swelling noted, No JVD. No thyroid enlargement. CARDIOVASCULAR: S1, S2 muffled. No murmur RESPIRATION: Essentially clear, Bilateral bases diminished, no rhonchi, no wheezing, no crackles ABDOMEN: Soft, nontender . No guarding. no masses palpable. Bowel sounds present. LEGS: Mild edema. PSYCHIATRY: Alert and oriented -3, mood and affect normal. NERVOUS SYSTEM: Cranial N 2-12 grossly normal. Moves all 4 limbs. No focal deficits. No sensory deficit. - Labs CBC & Chem 7: 07/30/17 07:46 07/30/17 07:46 Labs: Abnormal Lab Results - Last 24 Hours (Table) 07/27/17 07/27/17 07/28/17 Range/Units 17:14 20:38 07:08 RBC (3.80-5.40) m/uL Hgb (11.4-16.0) gm/dL Hct (34.0-46.0) % APTT (22.0-30.0) sec POC Glucose (mg/dL) 159 H 254 H 107 H (75-99) mg/dL 07/28/17 07/28/17 07/28/17 Range/Units 08:03 08:03 12:22 RBC 2.97 L (3.80-5.40) m/uL Hgb 9.0 L (11.4-16.0) gm/dL Hct 28.2 L (34.0-46.0) % APTT 87.5 H (22.0-30.0) sec POC Glucose (mg/dL) 151 H (75-99) mg/dL Microbiology - Last 24 Hours (Table) 07/26/17 14:10 Blood Culture - Preliminary Blood No Growth after 24 hours 07/25/17 08:10 Catheter Tip Culture - Final Catheter Tip Methicillin resist S. aureus Assessment and Plan Plan: 1. [ Change in mental status, possible acute UTI with sepsis-presumptive MRSA with metabolic encephalopathy secondary to sepsis, related to permcath. 2. [ Acute on chronic renal failure, end stage, with initiation of hemodialysis 3. [Anemia, normocytic, of chronic disease]. 4. [ Diabetes mellitus type 2]. 5. DVT in right mid and lower right IJV, provoked by hemodialysis cath. Plan: Continue on current medication regime ,monitoring and symptomatic treatment. Maintain Antibiotics as per infectious disease. Replacement permacath pending finalization of repeat blood cultures; tentatively planned for tomorrow and dialysis to follow.follow closely with nephrology. Further recommendations to follow. The impression and plan of care has been dictated as directed. : I performed a H&P examination of this patient and discussed the same with the dictator. I agree with the dictator's note. Any additional findings/opinions/ etc. will be noted.
--- NOTE | 2017-07-30 16:08 | P.PN ---
Subjective Progress note being dictated for Dr. Martell. 07/23/2017.Interval history: This a 71-year-old female admitted with altered mental status, acute UTI, renal failure, hyperkalemia, acidosis, sepsis and multiple other medical issues. Received first hemodialysis treatment last night via Permacath and currently receiving second treatment. Significant improvement in sensorium, electrolytes/bicarb.Maintained on gentle IV fluid hydration. T-max 102.5. Blood cultures reporting gram-positive cocci in clusters, urine culture in progress. Normal WBC. 07/24/2017. Maintained on Rocephin and vancomycin as per infectious disease. T -max 99.1, WBC 8. Presumptive MRSA in preliminary blood culture. Evaluated by infectious disease. Hemodialysis today pending, with permacath to be removed postdialysis related to suspected line sepsis. 07/27/2017 maintained on IV antibiotics as per infectious disease. Blood culture positive for MRSA,permacath had been removed. Permacath tip positive for MRSA. Repeat blood culture currently negative at 24 hours. Replacement PermCath pending. Doppler reporting DVT in right mid and lower right IJV.evaluated by hematology, recommendations noted. Currently on heparin drip. at Afebrile. Denies chest pain, palpitations or increasing shortness of breath. 07/28/2017. Repeat preliminary blood cultures post removal of PermCath remain negative. Replacement PermCath pending finalization of repeat blood cultures. Sitting up in chair, no acute distress. Afebrile. Denies chest pain, palpitations or increasing shortness of breath. 07/29/2017. Repeat blood Cultures remain negative. Awaiting PermCath placement this morning with vascular surgery. Eliquis to be initiated post procedure. Hemodialysis today following replacement PermCath. Continues to do well denies increased shortness of breath, chest pain, or palpitations. Objective - Vital Signs Vital signs: Vital Signs Temp 98.1 F 07/29/17 07:00 Pulse 64 07/29/17 07:00 Resp 14 07/29/17 07:00 BP 147/55 07/29/17 07:00 Pulse Ox 96 07/29/17 07:00 Intake & Output 07/28/17 07/29/17 07/29/17 18:59 06:59 18:59 Intake Total 642.177 190.228 Balance 642.177 190.228 Weight 93.5 kg Intake: Intake, IV Titration 642.177 190.228 Amount Heparin Sodium,Porcine/ 642.177 190.228 D5w Pmx 25,000 unit In Dextrose/Water 1 500ml. bag @ 18 UNITS/KG/HR 34. 99 mls/hr IV .[id number] [facility] Rx#:[id number] Other: Voiding Method Toilet Toilet # Voids 1 1 2 # Bowel Movements 0 - Exam PHYSICAL EXAM: VITAL SIGNS: As above GENERAL: Sitting up in bed, no acute distress HEENT: Conjunctivae normal. eyes normal. Oral mucosa moist. NECK: Right side of neck thickening/ swelling noted, No JVD. No thyroid enlargement. CARDIOVASCULAR: S1, S2 muffled. No murmur RESPIRATION: Essentially clear, Bilateral bases diminished, no rhonchi, no wheezing, no crackles ABDOMEN: Soft, nontender . No guarding. no masses palpable. Bowel sounds present. LEGS: Mild edema. PSYCHIATRY: Alert and oriented -3, mood and affect normal. NERVOUS SYSTEM: Cranial N 2-12 grossly normal. Moves all 4 limbs. No focal deficits. No sensory deficit. - Labs CBC & Chem 7: 07/30/17 07:46 07/30/17 07:46 Labs: Abnormal Lab Results - Last 24 Hours (Table) 07/28/17 07/28/17 07/28/17 Range/Units 12:22 16:29 16:55 RBC (3.80-5.40) m/uL Hgb (11.4-16.0) gm/dL Hct (34.0-46.0) % APTT 101.2 H* (22.0-30.0) sec Sodium (137-145) mmol/L Potassium (3.5-5.1) mmol/L Carbon Dioxide (22-30) mmol/L BUN (7-17) mg/dL Creatinine (0.52-1.04) mg/dL Glucose (74-99) mg/dL POC Glucose (mg/dL) 151 H 181 H (75-99) mg/dL 07/28/17 07/28/17 07/29/17 Range/Units 21:08 21:36 07:20 RBC (3.80-5.40) m/uL Hgb (11.4-16.0) gm/dL Hct (34.0-46.0) % APTT 56.0 H (22.0-30.0) sec Sodium (137-145) mmol/L Potassium (3.5-5.1) mmol/L Carbon Dioxide (22-30) mmol/L BUN (7-17) mg/dL Creatinine (0.52-1.04) mg/dL Glucose (74-99) mg/dL POC Glucose (mg/dL) 223 H 131 H (75-99) mg/dL 07/29/17 07/29/17 Range/Units 08:03 08:03 RBC 2.85 L (3.80-5.40) m/uL Hgb 8.5 L (11.4-16.0) gm/dL Hct 26.7 L (34.0-46.0) % APTT (22.0-30.0) sec Sodium 135 L (137-145) mmol/L Potassium 5.3 H (3.5-5.1) mmol/L Carbon Dioxide 16 L (22-30) mmol/L BUN 90 H* (7-17) mg/dL Creatinine 6.05 H* (0.52-1.04) mg/dL Glucose 112 H (74-99) mg/dL POC Glucose (mg/dL) (75-99) mg/dL Microbiology - Last 24 Hours (Table) 07/26/17 14:10 Blood Culture - Preliminary Blood No Growth after 48 hours Assessment and Plan Plan: 1. [ Change in mental status, possible acute UTI with sepsis-presumptive MRSA with metabolic encephalopathy secondary to sepsis, related to permcath. 2. [ Acute on chronic renal failure, end stage, with initiation of hemodialysis 3. [Anemia, normocytic, of chronic disease]. 4. [ Diabetes mellitus type 2]. 5. DVT in right mid and lower right IJV, provoked by hemodialysis cath. Plan: Continue on current medication regime ,monitoring and symptomatic treatment. Maintain Antibiotics as per infectious disease. Replacement permacath this morning with dialysis to follow.follow closely with nephrology. Discharge planning in progress for tomorrow. Further recommendations to follow. The impression and plan of care has been dictated as directed. : I performed a H&P examination of this patient and discussed the same with the dictator. I agree with the dictator's note. Any additional findings/opinions/ etc. will be noted.
--- NOTE | 2017-07-30 17:20 | PN ---
PROGRESS NOTE DATE OF SERVICE: 07/30/2017 REASON FOR FOLLOWUP: MRSA bacteremia secondary to PermCath infection. INTERVAL HISTORY: The patient is afebrile. She is breathing comfortably. Denies any chest pain, shortness of breath or cough. No abdominal pain or any diarrhea. EXAMINATION: Blood pressure is 175/72 with a pulse of 75, temperature 97.5. She is 95% on room air. General description is an elderly female up in the chair in no distress. RESPIRATORY SYSTEM: Unlabored breathing. Clear to auscultation anteriorly. HEART: S1, S2. Regular rate and rhythm. ABDOMEN: Soft. No tenderness. LABS: Hemoglobin 9.3, white count 7.2 with a BUN of 33, creatinine 3.43. DIAGNOSTIC IMPRESSION AND PLAN: Patient with MRSA bacteremia secondary to PermCath infection. That has been discontinued. Blood culture of 07/26 has been negative. The patient will continue on vancomycin, Pharmacy to dose, with dialysis for another 2 weeks with close outpatient followup. MMODL / IJN: [id number] /
[2017-08-05] MEDS ORDERED: APIXABAN 5 MG TAB PO SCH (09:00)
== END 2017-07-30 14:12 | disposition home or self-care (01) | DRG 314 ==
LOC: EC 16:33 → 6SEL 18:35 → 4MS4W 07-25 11:35
PROVIDERS: ADMIT Hospitalist; ATTEND Hospitalist
PROC: 5A1D60Z (ICD-10-PCS; 2017-07-22)
PROC: 05PYX3Z Removal of Infusion Device from Upper Vein, External Approach (ICD-10-PCS; principal; 2017-07-25)
PROC: B5181ZA Fluoroscopy of Superior Vena Cava using Low Osmolar Contrast, Guidance (ICD-10-PCS; 2017-07-29)
PROC: 0JHL3XZ Insertion of Tunneled Vascular Access Device into Right Upper Leg Subcutaneous Tissue and Fascia, Percutaneous Approach (ICD-10-PCS; 2017-07-29 07:30)
PROC: 02HV33Z Insertion of Infusion Device into Superior Vena Cava, Percutaneous Approach (ICD-10-PCS; 2017-07-29 07:30)
DX: T80.211A Bloodstream infection due to central venous catheter, initial encounter (principal); A41.02 Sepsis due to Methicillin resistant Staphylococcus aureus; G93.41 Metabolic encephalopathy; N17.9 Acute kidney failure, unspecified; N18.6 End stage renal disease; N39.0 Urinary tract infection, site not specified; E87.2 Acidosis; I82.C11 Acute embolism and thrombosis of right internal jugular vein; T80.1XXA Vascular complications following infusion, transfusion and therapeutic injection, initial encounter; E87.70 Fluid overload, unspecified; E11.22 Type 2 diabetes mellitus with diabetic chronic kidney disease; E87.5 Hyperkalemia; D63.1 Anemia in chronic kidney disease; I12.9 Hypertensive chronic kidney disease with stage 1 through stage 4 chronic kidney disease, or unspecified chronic kidney disease; D50.9 Iron deficiency anemia, unspecified; K59.00 Constipation, unspecified; E78.5 Hyperlipidemia, unspecified; F40.240 Claustrophobia; R25.2 Cramp and spasm; E66.9 Obesity, unspecified; R53.1 Weakness; Z79.4 Long term (current) use of insulin; Z79.82 Long term (current) use of aspirin; Z79.899 Other long term (current) drug therapy; Z85.828 Personal history of other malignant neoplasm of skin; Z85.528 Personal history of other malignant neoplasm of kidney; Z83.3 Family history of diabetes mellitus; Z82.49 Family history of ischemic heart disease and other diseases of the circulatory system; Z99.2 Dependence on renal dialysis; Z80.3 Family history of malignant neoplasm of breast; Z71.3 Dietary counseling and surveillance; Z90.710 Acquired absence of both cervix and uterus; Z90.49 Acquired absence of other specified parts of digestive tract; Z90.5 Acquired absence of kidney; Z90.11 Acquired absence of right breast and nipple; Z87.730 Personal history of (corrected) cleft lip and palate; Z86.69 Personal history of other diseases of the nervous system and sense organs; Y84.8 Other medical procedures as the cause of abnormal reaction of the patient, or of later complication, without mention of misadventure at the time of the procedure
CPT/HCPCS: 36415; 36558; 70450; 71020; 76937; 77001; 80048; 80053; 80202; 81001; 82272; 82803; 83036; 83540; 83550; 83605; 84100; 84443; 85025; 85610; 85730; 86704; 86706; 87040; 87070; 87077; 87086; 87186; 87340; 90935; 93005; 94760; 96361; 96365; 96366; 96367; 96375; 99291